=== PATIENT | female | born 1970 | race Caucasian/White ===

== ENCOUNTER 2017-01-26 08:45 | Inpatient (IN) | payer OTHER ==
[~2017-01-26] VITALS: Ht 154.9 cm; Wt 39.6 kg
--- NOTE | 2017-01-26 08:47 | NUR ---
IN BATHROOM PRIOR TO TRIAGE
--- NOTE | 2017-01-26 08:56 | NUR ---
46 Y/O FEMALE C/O N/V/D AND DIFFUSE ABDOMINAL/BACK PAIN SINCE SUNDAY; UNABLE TO TOLERATE ANY PO INTAKE PER PT DESPITE BEING "SO VERY THIRSTY". PT DENIES ANYONE ELSE IN HOME BEING SICK. REPORTS "A LITTLE" DIARRHEA. ATTEMPTED TO GIVE URINE SAMPLE PRIOR TO TRIAGE BUT WAS UNABLE TO. HR 130'S. AFEBRILE.
--- NOTE | 2017-01-26 09:02 | ED GI/GU/ABDOMINAL COMPLAINT ---
History of Present Illness General Chief Complaint: Nausea, Vomiting, Diarrhea Stated Complaint: VOMITING X2 DAYS Source: patient Exam Limitations: no limitations Vital Signs & Intake/Output Vital Signs & Intake/Output Vital Signs Date Time Temp Pulse Resp B/P B/P Pulse O2 O2 Flow FiO2 Mean Ox Delivery Rate 01/26 1226 97.2 110 18 133/89 06/ 1225 97.2 110 18 133/89 96 Room Air 01/26 1154 96.9 106 20 136/78 96 Room Air 01/26 1122 97.0 112 16 140/90 97 Room Air 01/26 1117 97.0 112 18 140/90 01/26 1030 97.5 117 20 148/85 97 Room Air 01/26 0911 96 Room Air 01/26 0853 97.2 132 16 116/91 97 Room Air Allergies Coded Allergies: No Known Allergies (01/26/17) Reconcile Medications No Known Home Medications Triage Note: 46 Y/O FEMALE C/O N/V/D AND DIFFUSE ABDOMINAL/BACK PAIN SINCE SUNDAY; UNABLE TO TOLERATE ANY PO INTAKE PER PT DESPITE BEING "SO VERY THIRSTY". PT DENIES ANYONE ELSE IN HOME BEING SICK. REPORTS "A LITTLE" DIARRHEA. ATTEMPTED TO GIVE URINE SAMPLE PRIOR TO TRIAGE BUT WAS UNABLE TO. HR 130'S. AFEBRILE. Triage Nurses Notes Reviewed? yes HPI: This is a 46-year-old female who presents to the ER for chief complaint of nausea vomiting and abdominal pain since Sunday morning. She states she had been vomiting on and off since Sunday after putting down her dog on Sunday. She denies any bad food exposure. She states yesterday since 4 PM she has been vomiting nonstop. Complains of mid abdominal pain radiating to her back and lower pelvis. Denies any fevers. Denies any significant diarrhea. No previous abdominal surgeries. Denies chance patency. Patient has a significant alcohol drinker. She drinks a pint per day on the weekends. Denies any alcohol during the week. Past History Travel History Traveled to [place] past 21 day No Medical History Any Pertinent Medical History? see below for history Neurological: NONE EENT: NONE Cardiovascular: NONE Respiratory: NONE Gastrointestinal: NONE Hepatic: NONE Renal: NONE Musculoskeletal: NONE Psychiatric: NONE Endocrine: NONE Blood Disorders: NONE Cancer(s): NONE NETWORK SUPPORT ADMINISTRATOR/Reproductive: NONE Psychosocial History What is your primary language Kyrgyz Tobacco Use: Current Daily Use Daily Tobacco Use Amount/Type: => 5 Cigarettes daily Review of Systems Review of Systems Constitutional: Reports: chills. Denies: fever. GI: Reports: abdominal pain, nausea, vomiting. Hematologic/Endocrine: Denies: bruising, bleeding, polyuria, polydipsia. Immunologic/Allergic: Denies: splenectomy. Progress Differential Diagnosis: PUD/GERD, perforated viscous, ALCOHOLIC KETOACIDOSIS, DKA, PANCREATITIS Plan of Care: Orders Procedure Date/time Status Admit to inpatient 01/26 1303 Active Vital Signs 01/26 1303 Active Code Status 01/26 1303 Active XRY-PORTABLE CHEST XRAY 01/26 1235 Active LACTIC ACID 01/26 1212 Complete BASIC METABOLIC PANEL 01/26 1209 Active Add-on Test (ER Only) 01/26 1125 Active CULTURE,URINE 01/26 1055 Active Add-on Test (ER Only) 01/26 1033 Active EKG 01/26 1032 Active ARTERIAL BLOOD GAS (GEN) 01/26 1025 Complete TROPONIN LEVEL 01/26 0926 Complete URINE DRUGS OF ABUSE 01/26 0912 Complete URINALYSIS 01/26 0912 Complete PARTIAL THROMBOPLASTIN TIME 01/26 0912 Complete PROTHROMBIN TIME 01/26 0912 Complete LIPASE 01/26 0912 Complete LACTIC ACID 01/26 0912 Complete ETHANOL 01/26 0912 Complete COMPREHENSIVE METABOLIC PANEL 01/26 0912 Complete CBC WITHOUT DIFFERENTIAL 01/26 0912 Complete AMYLASE 01/26 0912 Complete Current Medications Sig/Abigail Start time Last Medication Dose Stop Time Status Admin Dextrose/Water 1,000 ML ONCE ONE 01/26 1145 AC 01/26 (D5W 1000) 01/27 0104 1135 Laboratory Tests 01/26/17 1220: Lactic Acid 1.2 01/26/17 1220: Sodium Pending, Potassium Pending, Chloride Pending, Carbon Dioxide Pending, Anion Gap Pending, BUN Pending, Creatinine Pending, BUN/Creatinine Ratio Pending , Glucose Pending, Calcium Pending 01/26/17 1100: pH 7.36, pCO2 22 L, pO2 88, HCO3 12 L, ABG O2 Sat (Measured) 97.0, Carboxyhemoglobin 3.9, O2 Concentration % RA, O2 Delivery Method RA, Phlebotomy Draw Site FEMORAL 01/26/17 1055: Urine Opiates Screen 1923.00, Methadone Screen < 40, Barbiturate Screen < 60, Ur Phencyclidine Scrn < 6.00, Amphetamines Screen 185, U Benzodiazepines Scrn < 85, Urine Cocaine Screen < 50, Urine Cannabis Screen 79.40 H, Urinalysis LIGHT H, Urine Color KAPIL, Urine Clarity CLEAR, Urine pH 6.0, Ur Specific Jackson >= 1.030, Urine Protein 100 H, Urine Ketones >=80, Urine Nitrite NEG, Urine Bilirubin POS@ICTO H, Urine Urobilinogen 0.2, Ur Leukocyte Esterase NEG, Ur Microscopic SEDIMENT EXAMINED, Urine RBC 15-25 H, Urine WBC 1-3 H, Ur Epithelial Cells FEW, Urine Bacteria PACKD H, Urine Hemoglobin MOD H, Urine Glucose NEG 01/26/17 0926: Anion Gap 43 H, Estimated GFR 44 L, BUN/Creatinine Ratio 20.8, Glucose 325 H, Lactic Acid 3.7 H, Calcium 8.9, Total Bilirubin 1.5 H, AST 131 H, ALT 185 H, Alkaline Phosphatase 99, Troponin I < 0.01, Total Protein 9.4 H, Albumin 5.9 H , Globulin 3.5, Albumin/Globulin Ratio 1.7, Amylase 147 H, Lipase 588 H, PT 9.7, INR 0.92, APTT 30, CBC w Diff MAN DIFF ORDERED, RBC 4.80, MCV 109.9 H, MCH 36.9 H, RDW 14.3, MPV 9.6, Gran % 89.5 H, Lymphocytes % 3.6 L, Monocytes % 6.9, Eosinophils % 0, Basophils % 0 L, Absolute Granulocytes 17.0 H, Segmented Neutrophils 85 H, Band Neutrophils 2, Absolute Lymphocytes 0.7 L, Lymphocytes 7 L, Monocytes 5, Absolute Monocytes 1.3 H, Eosinophils 1, Absolute Eosinophils 0, Absolute Basophils 0, Platelet Estimate VERIFIED BY SMEAR, Poikilocytosis 1+, Anisocytosis 1+, Macrocytic Cells 1+, PUBS MCHC 33.6, Serum Alcohol < 10.0 Microbiology 01/26 1055 URINE ROUT: Urine Culture - RECD Diagnostic Imaging: Viewed by Me: CT Scan. Discussed w/RAD: CT Scan. Radiology Impression: PATIENT: DEJON CHANCE PRESENT AGE: 46 PATIENT ACCOUNT NO: [id number] : 68 LOCATION: [facility] ORDERING PHYSICIAN: SOFIA ROPER MD SERVICE DATE: 01/26/17 EXAM TYPE: CAT - CT ABD & PELVIS W/O IV CONTRAS EXAMINATION: CT ABDOMEN AND PELVIS WITHOUT CONTRAST CLINICAL INFORMATION: Abdominal pain, vomiting. Evaluate for pancreatitis. COMPARISON: None. TECHNIQUE: Multidetector volumetric imaging was performed from the superior aspect of the liver through the pubic symphysis. Sagittal and coronal reformatted images were obtained on the technologist's workstation. DLP: 236.71 mGy-cm. FINDINGS: LUNG BASES: There is a small focal area of subpleural ground-glass opacity in the right middle lobe which is nonspecific but may be inflammatory. The lung bases are otherwise unremarkable. LIVER, GALLBLADDER, AND BILIARY TREE: There is diffuse low-attenuation of the liver consistent with hepatic steatosis. There are no focal lesions. There is no biliary duct dilatation. The gallbladder is unremarkable with no evidence of radiopaque gallstones, gallbladder wall thickening, or obvious pericholecystic inflammatory changes. PANCREAS: There is fullness in the region of the head of the pancreas. Evaluation is limited due to the lack of intravenous contrast. The body and tail of the pancreas are unremarkable. There are no apparent peripancreatic inflammatory changes around the body and tail. SPLEEN: Unremarkable. ADRENAL GLANDS: Unremarkable. KIDNEYS AND URETERS: The kidneys are normal in size, shape, and attenuation. No hydronephrosis, hydroureter, or calculi seen. No perinephric stranding. BLADDER: Unremarkable. GASTROINTESTINAL TRACT: The small and large bowel are unremarkable. The appendix is unremarkable. ABDOMINAL WALL: No significant hernia is appreciated. LYMPH NODES: Normal. VASCULAR: There is a circumaortic left renal vein. The vascular structures are otherwise unremarkable. PELVIC VISCERA: There is a right ovarian cyst measuring 2.3 cm. The pelvic viscera are otherwise unremarkable. OSSEOUS STRUCTURES: There is severe degenerative disc disease at L2-L3. IMPRESSION: 1. Small focal area of subpleural ground-glass opacity in the right middle lobe which is nonspecific but may be inflammatory. 2. Hepatic steatosis. 3. Fullness in the region of the head of the pancreas. Evaluation is limited due to the lack of intravenous contrast. 4. Right ovarian cyst measuring 2.3 cm. 5. Severe degenerative disc disease at L2-L3. DICTATED BY: RK MORATAYA MD DATE/TIME DICTATED:01/26/171204 BULL RIDER:ALDAIR DATE/TIME TRANSCRIBED:01/26/171204 CONFIDENTIAL, DO NOT COPY WITHOUT APPROPRIATE AUTHORIZATION. <Electronically signed in Other Vendor System> SIGNED BY: RK MORATAYA MD 01/26/17 1222 Initial ED EKG: SINUS TACHYCARDIA @ 112 BPM Rhythm Strip: sinus tachycardia Departure Departure Time of Disposition: 1258 Disposition: STILL A PATIENT Condition: Stable Clinical Impression Primary Impression: DKA (diabetic ketoacidoses) Referrals: YESSY GARSIA MD Departure Forms: Customer Survey General Discharge Information Prescriptions: Current Visit Scripts No Known Home Medications Admission Note Spoke With: KATIE CLEMENTE,DANAE Zeng Documentation of Exam: Documentation of any treatments & extenuating circumstances including Concerns Regarding Discharge (functional status, medication knowledge or non-compliance, living conditions, etc.) that warrant an admission rather than observation: [ICU MONITOR, INSULIN DRIP, FLUID RESUSSCITATION, MONITOR I/O, ENDOCRINOLOGY CONSULTATION, PAIN MANAGEMENT, CIWA MONITORING, CRISIS CONSULT]
--- NOTE | 2017-01-26 09:18 | NUR ---
PT TO ROOM, STATES THAT SHE HAD TO PUT HER DOG DOWN THIS WEEK AND SHE HAS BEEN UPSET SINCE, PT STATES THAT SHE HAS HAD N/V SINCE SUNDAY , ONE EPISODE OF LOOSE STOOL. ABD PAIN THAT STARTED AFTER THE VOMITTING. PT BEGGING THIS NURSE FOR WATER OR ICE CHIPS, PER DR ROPER PT CAN HAVE ICE CHIPS. IV PLACED AND WHEN THIS NURSE ENTERED ROOM WITH MEDS PT ACTIVELY VOMITTING A SMALL AMOUNT CLEAR FLUID. PT AWARE THAT SHE SHOULD NOT EAT ANYMORE ICE CHIPS. PT ADMITS TO BEING A HEAVY DRINKER AND HAS NOT HAD ANYTHING SINCE OVER THE WEEKEND. DENIES HISTORY OF WITHDRAWAL SEIZURES. PT MEDICATED WITH ZOFRAN AND TORADOL
--- NOTE | 2017-01-26 09:27 | NUR ---
BLDS DRAWN AND SENT
[2017-01-26 09:40] LABS: ABSOLUTE BASOPHIL COUNT 0 /CUMM (0.0-0.2); ABSOLUTE EOSINOPHIL COUNT 0 /CUMM (0.0-0.7); ABSOLUTE LYMPH COUNT 0.7 /CUMM (1.2-3.4); ABSOLUTE MONOCYTE COUNT 1.3 /CUMM (0.10-0.60); BASOPHIL % 0 % (0.0-2.0); EOSINOPHIL % 0 % (0-5); GRANULOCYTE % 89.5 % (42.2-75.2); HEMATOCRIT 52.7 % (37-47); MEAN CORPUSCULAR HGB 36.9 PG (27.0-31.0); MEAN CORPUSCULAR HGB CONC 33.6 G/DL (33.0-37.0); MEAN CORPUSCULAR VOLUME 109.9 FL (81.0-99.0); MEAN PLATELET VOLUME 9.6 FL (7.4-10.4); PLATELET COUNT 173 /CUMM (130-400); RBC DISTRIBUTION WIDTH 14.3 % (11.5-14.5)
--- NOTE | 2017-01-26 09:57 | NUR ---
PT VOMITTED X 2 AFTER IV ZOFRAN, COMPLAINS OF CHILLS, REMAINS AFEBRILE . MD PEOPLES
--- NOTE | 2017-01-26 10:03 | NUR ---
PT MEDICATED WITH IV PHENERGAN 12.5 MG IV
[2017-01-26 10:06] LABS: PT 9.7 SEC (9.4-12.5); PTT 30 SEC (25-37)
--- NOTE | 2017-01-26 10:20 | NUR ---
PT COMPLAINS OF 10/10 ABD PAIN, MEDICATED AT THIS TIME WITH 4 MG MORPHINE
--- NOTE | 2017-01-26 10:26 | NUR ---
CRITICAL TEST RESULTS [id number] DEJON CHANCE 46 F TESTS AND RESULTS: LACTIC ACID 3.7 Results received and read back by: JUAN F LOBATO Results received date and time: 01/26/17 1026 The following provider was notified of the results, and read the results back: DR ROPER Notified date and time: 01/26/17 at 1026
--- NOTE | 2017-01-26 10:26 | NUR ---
CRITICAL TEST RESULTS [id number] DEJON CHANCE 46 F TESTS AND RESULTS: CO2 - 7 Results received and read back by: JUAN F LOBATO Results received date and time: 01/26/17 1026 The following provider was notified of the results, and read the results back: DR ROPER Notified date and time: 01/26/17 at 1026
--- NOTE | 2017-01-26 10:30 | NUR ---
SECOND LITER NS BOLUS INFUSING AT THIS TIME. PHARMACY GETTING INSULIN DRIP READY AT THIS TIME
--- NOTE | 2017-01-26 10:51 | NUR ---
PT AMBULATED TO BATHROOM WITH ASSIST, COMPLAINS OF FEELING WEAK, AND HAVING THE CHILLS, ASSISTED BACK TO STRETCHER , SINUS TACH ON MONITOR WITH HR 124. PT CONTINUES TO DENIES DRINKING SINCE SUNDAY , DENIES FEELING TREMORS FROM NOT DRINKING
--- NOTE | 2017-01-26 10:54 | NUR ---
URINE OBTAINED AND SENT TO LAB
--- NOTE | 2017-01-26 11:14 | NUR ---
PT DENIES HISTORY OF DIABETES, DR ROPER AT BEDSIDE AND EXPLAINED THAT SHE FEELS SHE IS IN DKA, SECOND LINE PLACED, PT RECIEVED A TOTAL OF 2L IV NS BOLUS. AT 11 AM D5 NS STARTED AT 75ML/HR PER DR ROPER AND INSULIN DRIP STARTED AT 3 UNITS AND HR FOR FS OF 241. PT REMAINS SINUS TACH ON MONITOR HR 110.
[2017-01-26 11:17] VITALS: BP 140/90
--- NOTE | 2017-01-26 11:21 | NUR ---
BP 140/90, HR 112 PT COMPLAINS OF SLIGHT NAUSEA BUT DENIES FEELING SHAKEY, NO VISIBLE TREMORS NOTED AT THIS TIME. CIWA 3.
--- NOTE | 2017-01-26 11:27 | NUR ---
FINGERSTICK 210 AT THIS TIME, AWARE, PT GOING TO CT SCAN AT THIS TIME, PER DR ROPER STOP INSULIN DRIP INTILL PT RETURNS FROM CT SCAN. DRIP PUT ON HOLD AT THIS TIME.. PT REQUEST THAT IF HER MOTHER COMES IN SHE DOES NOT WANT HER MOTHER INFORMED ABOUT ANYTHING THAT IS GOING ON .
--- NOTE | 2017-01-26 11:36 | NUR ---
3RD LITER NS INFUSING LF # 20 GAUGE
--- NOTE | 2017-01-26 11:51 | NUR ---
PT RETURNED FROM CT SCAN , BP 136/78 HR 106, DENIES TREMORS AND STATES THAT SHE STILL HAS SLIGHT NAUSEA, AND CRAMOING IN HER ABD. PER DR ROPER INSULING DRIP DECREASED TO 2 UNITS /HR AT THIS TIME. FRIEND REMAINS AT BEDSIDE
--- NOTE | 2017-01-26 12:05 | NUR ---
FS 204 AT THIS TIME, PT REMAINS ALERT AND ORIENTED AND REQUEST TO HAVE SOME ICE CHIPS OR WATER, PT AWARE THAT WE HAVE TO ASK MD
--- NOTE | 2017-01-26 12:15 | NUR ---
REPEAT LABS BEING DRAWN AT THIS TIME
--- NOTE | 2017-01-26 12:22 | CT SCAN REPORT ---
EXAMINATION: CT ABDOMEN AND PELVIS WITHOUT CONTRAST CLINICAL INFORMATION: Abdominal pain, vomiting. Evaluate for pancreatitis. COMPARISON: None. TECHNIQUE: Multidetector volumetric imaging was performed from the superior aspect of the liver through the pubic symphysis. Sagittal and coronal reformatted images were obtained on the technologist's workstation. DLP: 236.71 mGy-cm. FINDINGS: LUNG BASES: There is a small focal area of subpleural ground-glass opacity in the right middle lobe which is nonspecific but may be inflammatory. The lung bases are otherwise unremarkable. LIVER, GALLBLADDER, AND BILIARY TREE: There is diffuse low-attenuation of the liver consistent with hepatic steatosis. There are no focal lesions. There is no biliary duct dilatation. The gallbladder is unremarkable with no evidence of radiopaque gallstones, gallbladder wall thickening, or obvious pericholecystic inflammatory changes. PANCREAS: There is fullness in the region of the head of the pancreas. Evaluation is limited due to the lack of intravenous contrast. The body and tail of the pancreas are unremarkable. There are no apparent peripancreatic inflammatory changes around the body and tail. SPLEEN: Unremarkable. ADRENAL GLANDS: Unremarkable. KIDNEYS AND URETERS: The kidneys are normal in size, shape, and attenuation. No hydronephrosis, hydroureter, or calculi seen. No perinephric stranding. BLADDER: Unremarkable. GASTROINTESTINAL TRACT: The small and large bowel are unremarkable. The appendix is unremarkable. ABDOMINAL WALL: No significant hernia is appreciated. LYMPH NODES: Normal. VASCULAR: There is a circumaortic left renal vein. The vascular structures are otherwise unremarkable. PELVIC VISCERA: There is a right ovarian cyst measuring 2.3 cm. The pelvic viscera are otherwise unremarkable. OSSEOUS STRUCTURES: There is severe degenerative disc disease at L2-L3. IMPRESSION: 1. Small focal area of subpleural ground-glass opacity in the right middle lobe which is nonspecific but may be inflammatory. 2. Hepatic steatosis. 3. Fullness in the region of the head of the pancreas. Evaluation is limited due to the lack of intravenous contrast. 4. Right ovarian cyst measuring 2.3 cm. 5. Severe degenerative disc disease at L2-L3.
[2017-01-26 12:26] VITALS: BP 133/89
--- NOTE | 2017-01-26 12:27 | NUR ---
PT RESTING ON STRETCHER WITH EYES CLOSED, PT AWAKE AND ALERT FOR VITALS, CIWA 2 AT THIS TIME DUE TO SLIGHT NAUSEA, PT ABLE TO TOLERATE SMALL AMOUNTS OF ICE CHIPS AT THIS TIME. SINUS TACH ON MONITOR WITH HR 110, BP 133/89. 3RD LITER NS BOLUS CONTINUES TO INFUSE LF # 20, D5 NS AT 75 ML/HR , AND INSULIN DRIP AT 2 UNITS PER HOUR INFUSING # 20 RF. FS [address] JUDSON INSULIN DRIP TO REMAIN AT 2 UNITS HR.
--- NOTE | 2017-01-26 12:38 | NUR ---
DR ROPER AT BEDSIDE TO SPEAK WITH PT AT THIS TIME, PT REQUESTING WATER AND ALSO STATES THAT ABD PAIN IS INCREASING. PT INFORMED BY DR ROPER THAT SHE HAS MILD PANCREATITIS.
--- NOTE | 2017-01-26 12:44 | NUR ---
PT MEDICATED AT THIS TIME WITH DILAUDID 1 MG IV PER ORDER FOR 10/10 ABD PAIN, PER DR ROPER PT CAN HAVE SIPS OF WATER.
--- NOTE | 2017-01-26 12:48 | NUR ---
PT MEDICATED WITH PROTONIX PER ORDER
--- NOTE | 2017-01-26 12:59 | NUR ---
FS [address] ROSASTA INSULIN DRIP TO REMAIN AT 2 UNITS /HR AT THIS TIME
--- NOTE | 2017-01-26 13:16 | RADIOLOGY REPORT ---
EXAMINATION: XR PORTABLE CHEST CLINICAL INFORMATION: Questionable infiltrate on recent CT scan. COMPARISON: Abdominal and pelvis CT 01/26/2017. TECHNIQUE: Portable frontal view of the chest was obtained. FINDINGS: The cardiomediastinal silhouette is unremarkable. The lungs and pleural spaces appear clear without evidence of congestion, consolidation, or significant appearing effusion or atelectasis. There is no evidence of pneumothorax or pulmonary edema. Included osseous structures appear largely unremarkable. IMPRESSION: No evidence of an acute intrathoracic process. Given the 2.5 cm transverse dimension focus of right middle lobe groundglass opacity identified on recent abdominal CT, interval follow-up CT imaging will be necessary. A dedicated chest CT on a nonemergent basis should also be considered to evaluate for other areas of groundglass opacity. Please see discussion below in regards to the updated Fleischner recommendations: The Fleischner Society recommendations are related to the follow-up and management of pulmonary nodules detected incidentally in patient's greater than 35 years old on non-screening CT. Ground Glass Nodule: Average size < 6 mm: No routine follow-up. Average size 6 mm or greater: CT at 6-12 months to confirm persistence. Then CT every 2 years until 5 years. In certain suspicious nodules < 6 mm, consider follow-up at 2 years and 4 years. If solid component(s) or growth develops, consider resection.
--- NOTE | 2017-01-26 13:40 | NUR ---
FLUIDS CHANGED TO KCL 20 MEQ IN D5 1/2 NS AT 100ML/HR PER ORDER, FS AT THIS TIME 158, PER ICU STAFF INSULIN DRIP DECREASED TO 0.5 UNITS PER HR PER ORDER AT THIS TIME.
[2017-01-26 13:43] VITALS: BP 136/78
--- NOTE | 2017-01-26 13:43 | NUR ---
PTS CIWA O AT THIS TIME, DENIES NAUSEA OR PAIN.
--- NOTE | 2017-01-26 13:54 | History & Physical ---
JAZMYNE CLEMENTE,[facility] 01/26/17 1352: General Information and HPI MD Statement: I have seen and personally examined DEJON CHATTERJEE and documented this H&P. The patient is a 46 year old F who presented with a patient stated chief complaint of [intractable vomiting]. Source of Information: patient, family Exam Limitations: no limitations History of Present Illness: Ms. Chatterjee is a 46-year-old female with past medical history significant for alcohol abuse, current smoker, left breast lump status post lumpectomy 2009, ovarian abscess status post surgery who presented to ED with chief complaint of intractable vomiting. Patient reported that over the last 3 days she has been vomiting on and off, yesterday she started to vomit consistently since 4 PM, vomits contain mainly food, denied blood. Also reported chills, mild abdominal pain that improved after Dilaudid, denied diarrhea, burning with urination. Patient denied chest pain, shortness of breath, palpitation. Patient reported alcohol abuse, 1 pint of alcohol daily, last drink was over the weekend. She also admit smoking marijuana and cigarette smoking 1 pack daily. Patient doesn't have current primary care physician, denied having any medical problems or using any medication on regular basis. Allergies/Medications Allergies: Coded Allergies: No Known Allergies (01/26/17) Home Med list No Known Home Medications Past History Travel History Traveled to [place] past 21 day No Medical History Neurological: NONE EENT: NONE Cardiovascular: NONE Respiratory: NONE Gastrointestinal: NONE Hepatic: NONE Renal: NONE Musculoskeletal: NONE Psychiatric: NONE Endocrine: NONE Blood Disorders: NONE Cancer(s): NONE COURT ASSISTANT/Reproductive: NONE Surgical History Surgical History: breast biopsy, left breast lumbectomy , overian abcess Past Family/Social History Psychosocial History Where do you live? Home Who Do You Live With? spouse Services at Home: None Primary Language: Khmer Smoking Status: Current Everyday Smoker ETOH Use: alcoholic Illicit Drug Use: marijuana Functional Ability ADLs Independent: dressing, eating, toileting, bathing. Ambulation: independent IADLs Independent: shopping, housework, finances, food prep, telephone, transportation , medication admin. 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 Denies: fever, malaise. EENTM: Denies: blurred vision. Cardiovascular: Denies: chest pain, palpitations. Respiratory: Reports: cough. Denies: short of breath. GI: Reports: abdominal pain, nausea, vomiting. Genitourinary: Denies: dysuria. Exam & Diagnostic Data Last 24 Hrs of Vital Signs/I&O Vital Signs Date Time Temp Pulse Resp B/P B/P Pulse O2 O2 Flow FiO2 Mean Ox Delivery Rate 01/26 1343 97.1 100 16 136/78 06/ 1342 97.1 100 16 136/78 97 Room Air 06/ 1226 97.2 110 18 133/89 06/02 1225 97.2 110 18 133/89 96 Room Air / 1154 96.9 106 20 136/78 96 Room Air / 1122 97.0 112 16 140/90 97 Room Air / 1117 97.0 112 18 140/90 01/26 1030 97.5 117 20 148/85 97 Room Air / 0911 96 Room Air / 0853 97.2 132 16 116/91 97 Room Air Intake & Output 01/26 1600 02 0800 01/26 0000 Intake Total 3367 Output Total 370 Balance 2997 Intake, IV 3187 Intake, Oral 180 Output, 30 Emesis Output, Urine 340 Patient 43.091 kg Weight Weight Reported by Patient Measurement Method Physical Exam General Appearance Alert, Oriented X3, Cooperative, No Acute Distress Skin No Rashes, No Breakdown, No Significant Lesion Skin Temp/Moisture Exam: Warm/Dry HEENT Atraumatic, PERRLA, EOMI, Mucous Membr. moist/pink Neck Supple, No JVD Cardiovascular Regular Rate, Normal S1, Normal S2, No Murmurs Lungs Clear to Auscultation, Normal Air Movement Abdomen Normal Bowel Sounds, Soft, No Tenderness Neurological Normal Gait, Normal Speech, Strength at 5/5 X4 Ext, Normal Tone, Sensation Intact, Cranial Nerves 3-12 NL, Reflexes 2+ Extremities No Clubbing, No Cyanosis, No Edema, Normal Pulses Assessment/Plan Assessment: Ms. Chatterjee is a 46-year-old female with past medical history significant for alcohol abuse, current smoker, left breast lump status post lumpectomy 2009, ovarian abscess status post surgery who presented to ED with chief complaint of intractable vomiting. On admission Vital signs temperature 97.2, pulse 132, respiratory rate 16, blood pressure 116 /91 saturating 97% on room air Lab H&H 17.7/52.7, WBC 19 with 2 bands, platelets 173, sodium 143, potassium 4.6 , bicarbonate 7, BUN/creatinine 27/1.3, glucose 325, anion gap 43, ABG 7.36/22/ 88/12, AST 131, ALT 185, alkaline phosphatase 99, lipase 588, amylase 147, troponin less than 0.01. Urine tox culture positive for cannabis CT abdomen and pelvis IMPRESSION: 1. Small focal area of subpleural ground-glass opacity in the right middle lobe which is nonspecific but may be inflammatory. 2. Hepatic steatosis. 3. Fullness in the region of the head of the pancreas. Evaluation is limited due to the lack of intravenous contrast. 4. Right ovarian cyst measuring 2.3 cm. 5. Severe degenerative disc disease at L2-L3. Problem list #DKA #Lactic acidosis #Anion gap metabolic acidosis #Alcohol abuse #Transaminitis #Elevated lipase with fullness around head of pancreas #Urine culture positive for cannabis #Acute kidney injury most prerenal Plan -Admit to ICU -IV fluid D5 half-normal 100 mL/h -Recheck labs and replete potassium is less than 4 -Check labs every 4 hours -Continue insulin drip, consider switching to subcutaneous insulin after anion gap is closed and bicarbonate of 18 -Obtain endocrine consultation -Check C-peptide, thyroid function test in a.m., GAD65 in a.m. -Check hemoglobin A1c -Trend lactic acid and keep IV fluid hydration -Repeat lipase in a.m. -Monitor liver function test -Ativan Q1 CIWA -Nicotine patch -Code full -DVT prophylaxis heparin subcutaneous -Diet NPO -Consultation Endocrine As Ranked By This Provider Problem List: 1. DKA (diabetic ketoacidoses) Core Measures/Miscellaneous Acute Coronary Syndrome ACS Diagnosis: No Cerebrovascular Accident CVA/TIA Diagnosis: No Congestive Heart Failure CHF Diagnosis: No Venous Thromboembolism VTE Risk Factors: Age > 40 [facility] prophylaxis d/t: No contraindications No VTE Pharm Prophylaxis d/t: No contraindications VTE Diagnosis: No VTE Type: NONE VTE Confirmed by (Test): NONE Severe Sepsis Severe Sepsis Present: No Septic Shock Septic Shock Present: No Miscellaneous Documentation Attending Case Discussed With: KATIE CLEMENTE,DANAE Zeng Primary Care Physician: UNKNOWN Patient sees these Specialists none Level of Patient Care: Critical Care (CRI) LUIS CLEMENTE,DONNA 01/26/17 1413: Resident Review Statement Resident Statement: examined this patient Other Findings: Ms. Chatterjee is a 46-year-old lady with no known medical problems a presents to the emergency room for an evaluation of the three-day history of nausea and vomiting. Patient states that she has been very stressed lately because she had to put her dog down a couple days ago. Yesterday around 4 PM she started to notice diffuse abdominal pain accompanied by vomiting. She has no medical problems diagnosed in the past. She currently drinks about 1 pint of heavy alcohol every day, smokes marijuana. Does also admit to smoking 1 pack per day. States that she had 5-6 episodes of vomiting, denies any hematemesis or hemoptysis. She subsequently came to the emergency room where she was found to have elevated sugars an anion gap. She has never been diagnosed with diabetes before. Does not see any physicians, has no medical issues. Assessment- 1. Diabetic ketoacidosis 2. Anion gap metabolic acidosis likely secondary to above 3. Nausea and vomiting likely secondary to DKA 4. Abdominal pain secondary to DKA 5. Leukocytosis, likely reactive 6. Macrocytosis, likely alcohol induced 7. History of heavy alcohol use 8. Prerenal azotemia 9. Transaminitis and hyperbilirubinemia, possibly secondary to fatty liver 10. U tox positive for cannabis and opiates Plan- - admit to the ICU - Vitals per protocol - Persistent anion gap, continue IV fluids D5 half-normal saline with potassium supplementation - Continue insulin drip at 0.5 mL per hour - Keep nothing by mouth for now - Check thyroid studies, C-peptide, Kevin antibiotic, T12, folic acid, vitamin D - Labs every 4 hrs - Accu-Cheks - Nicotine patch, smoking cessation counseled - CIWA protocol, when necessary Ativan per CIWA protocol - Pain pathway - DVT prophylaxis with subcutaneous heparin - Full code KATIE CLEMENTE,[facility] 01/26/17 1801: Attending MD Review Statement Attending Statement Attending MD Statement: examined this patient, discuss w/resident/PA/HOTEL DIRECTOR, agreed w/resident/PA/HOTEL DIRECTOR, discussed with family, reviewed EMR data (avail), discussed with nursing, discussed with case mgmt, reviewed images, amended to note Attending Assessment/Plan: seen and examined independently Ms. Chatterjee is a 46-year-old female with past medical history significant for alcohol abuse, current smoker, left breast lump status post lumpectomy 2009, ovarian abscess status post surgery who presented to ED with chief complaint of intractable vomiting. She doesn't have hx of DM. Blood work showed glucose 325, carbon dioxide 7, AG 43, alctic acid 3.7, AST 131 and ALT 185, ETOH < 10. Patient reported alcohol abuse, 1 pint of alcohol daily, last drink was over the weekend. She also admit smoking marijuana and cigarette smoking 1 pack daily. She received IVF and insulin drip. Her glucose level has been improving. Abdominal pain and vomiting resolved. Physical Exam General Appearance: mild distress Neck: thyromegaly Respiratory: lungs clear Cardiovascular: tachycardia Gastrointestinal: soft mild tenderness all over Extremities: no edema SIGNIFICANT DATA CT scan of the abdomen reviewed showed no significant major pathology however it did show that there is some inflammation on the pancreas and a small groundglass opacity in the right middle lobe with hepatic steatosis and fullness in the region a head of pancreas. 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 Cultures are negative so far Other blood work reviewed anion gap initially was 43 now down to 21 and bicarbonate was 7 now 15. Amylase lipase elevated liver enzymes elevated bilirubin 1.5 SAMUEL LT elevated white count 19.90 hemoglobin 17 the next hemoglobin is pending probably hemoconcentration 85% segs INR normal ABG initially 736 was a pH after fluid resuscitation IMPRESSION This is a lady with history of significant alcohol use with ongoing smoking, previous left breast surgery with lumpectomy, previous ovarian abscess versus. Pelvic inflammatory disease with surgery, comes here now with significant intractable vomiting with * Severe metabolic acidosis with significant ketosis. High blood sugar noted. She appears to have a new onset diabetes compounded by alcohol use with ketoacidosis with profound metabolic acidosis. * Probable diabetes type 1 * Significant alcohol use with clinical evidence suggestive of pancreatitis with some abnormality in the head of pancreas which needs evaluation * Ongoing smoking with a groundglass opacity in the chest * Electrolyte abnormality with hypocalcemia. RECOMMENDATION * Continue intravenous fluids please see endocrine note * Insulin drip * She can have ice chips * If she does not vomit any further and if she wants to have some food she can have full liquid diet in the future only if she is not vomiting * Replete electrolytes * By mouth calcium * Watch for alcohol withdrawal and use Librium 50 mg every 8 hours and can increase the dose if she needs it. Can use when necessary Ativan if needed * Banana bag as well * Repeat blood work * Watch out for significant DT * Start proton pump inhibitor * Venodyne boots * Lovenox 40 * Patient is critically ill ICU appropriate total time spent 40 minutes
--- NOTE | 2017-01-26 14:07 | NUR ---
PT HAS BED ASSIGNMENT 102. RN NOTIFIED.
--- NOTE | 2017-01-26 14:11 | NUR ---
FS 152 AT THIS TIME, INSULIN DRIP REMAINS AT 0.5 UNITS /HR PER ORDER, KCL 20 MEQ IN D5 1/2 NS INFUSING AT 100ML/HR.
--- NOTE | 2017-01-26 14:39 | NUR ---
pt medicated per order, nicotine patch placed to l arm
--- NOTE | 2017-01-26 14:43 | NUR ---
FS 147 AT THIS TIME
--- NOTE | 2017-01-26 15:33 | Cons- Endocrinology ---
General Information and HPI Consulting Request Date of Consult: 01/26/17 Requested By: ICU Reason for Consult: management of DKA Source of Information: patient, old records Exam Limitations: no limitations History of Present Illness: Ms. Chatterjee is a 46-year-old female with past medical history significant for alcohol abuse, current smoker, left breast lump status post lumpectomy 2009, ovarian abscess status post surgery who presented to ED with chief complaint of intractable vomiting. She doesn't have hx of DM. Blood work showed glucose 325, carbon dioxide 7, AG 43, alctic acid 3.7, AST 131 and ALT 185, ETOH < 10. Patient reported alcohol abuse, 1 pint of alcohol daily, last drink was over the weekend. She also admit smoking marijuana and cigarette smoking 1 pack daily. She received IVF and insulin drip. Her glucose level has been improving. Abdominal pain and vomiting resolved. Currently she is on D51/2 NS at 75 ml/hour, insulin drip 2 units per hour and FSG was 183 at 1 pm. Allergies/Medications Allergies: Coded Allergies: No Known Allergies (01/26/17) Home Med List: No Known Home Medications Review of Systems Review of Systems Constitutional: Reports: see HPI. Cardiovascular: Denies: chest pain. Respiratory: Denies: short of breath. GI: Reports: abdominal pain, nausea, vomiting. Genitourinary: Denies: dysuria. Hematologic/Endocrine: Reports: polyuria, polydipsia. 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 Home Who Do You Live With? spouse Services at Home: None Primary Language: Romanian Smoking Status: Current Everyday Smoker ETOH Use: alcoholic Illicit Drug Use: marijuana Functional Ability ADLs Independent: dressing, eating, toileting, bathing. Ambulation: independent IADLs Independent: shopping, housework, finances, food prep, telephone, transportation , medication admin. 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 Exam & Diagnostic Data Last 24 Hrs of Vital Signs/I&O Vital Signs Date Time Temp Pulse Resp B/P B/P Pulse O2 O2 Flow FiO2 Mean Ox Delivery Rate 01/26 1440 97.8 104 18 132/79 96 Room Air 06/ 1343 97.1 100 16 136/78 06/02 1342 97.1 100 16 136/78 97 Room Air 06/ 1226 97.2 110 18 133/89 06/02 1225 97.2 110 18 133/89 96 Room Air 06/ 1154 96.9 106 20 136/78 96 Room Air / 1122 97.0 112 16 140/90 97 Room Air 06/ 1117 97.0 112 18 140/90 / 1030 97.5 117 20 148/85 97 Room Air / 0911 96 Room Air 01/26 0853 97.2 132 16 116/91 97 Room Air Intake & Output 01/26 1600 06/02 0800 01/26 0000 Intake Total 3367 Output Total 370 Balance 2997 Intake, IV 3187 Intake, Oral 180 Output, 30 Emesis Output, Urine 340 Patient 87 lb 4 oz Weight Weight Bed scale Measurement Method Physical Exam General Appearance: mild distress Neck: thyromegaly Respiratory: lungs clear Cardiovascular: tachycardia Gastrointestinal: soft Extremities: no edema Labs/Devyn Results: Laboratory Tests 01/26 01/26 01/26 1220 1220 1100 Blood Gas pH (7.35 - 7.45 PH) 7.36 pCO2 (35 - 45 TORR) 22 L pO2 (80 - 100 TORR) 88 HCO3 (21 - 28 MEQ/L) 12 L ABG O2 Sat (Measured) (>96.0 %) 97.0 Carboxyhemoglobin (1.5 - 5.0 %) 3.9 O2 Concentration % RA O2 Delivery Method RA Chemistry Sodium (137 - 145 mmol/L) 141 Potassium (3.5 - 5.1 mmol/L) 3.8 Chloride (98 - 107 mmol/L) 105 Carbon Dioxide (22 - 30 mmol/L) 15 L Anion Gap (5 - 16) 21 H BUN (7 - 17 mg/dL) 24 H Creatinine (0.5 - 1.0 mg/dL) 0.8 Estimated GFR (>60 ml/min) > 60 BUN/Creatinine Ratio (7 - 25 %) 30.0 H Glucose (65 - 99 mg/dL) 192 H Lactic Acid (0.7 - 2.1 mmol/L) 1.2 Calcium (8.4 - 10.2 mg/dL) 6.8 L Miscellaneous Phlebotomy Draw Site FEMORAL 01/26 1055 Toxicology Urine Opiates Screen (>2000 NG/ML) 1923.00 Methadone Screen (>300 NG/ML) < 40 Barbiturate Screen (>200 NG/ML) < 60 Ur Phencyclidine Scrn (>25 NG/ML) < 6.00 Amphetamines Screen (>1000 NG/ML) 185 U Benzodiazepines Scrn (>200 NG/ML) < 85 Urine Cocaine Screen (>300 NG/ML) < 50 Urine Cannabis Screen (>50 NG/ML) 79.40 H Urines Urinalysis LIGHT H Urine Color (YEL,AMB,STR) KAPIL Urine Clarity (CLEAR) CLEAR Urine pH (5.0 - 8.0) 6.0 Ur Specific [place] (1.001 - 1.035) >= 1.030 Urine Protein (NEG,<30 MG/DL) 100 H Urine Ketones (NEG) >=80 Urine Nitrite (NEG) NEG Urine Bilirubin (NEG) POS@ICTO H Urine Urobilinogen (0.1 - 1.0 EU/dl) 0.2 Ur Leukocyte Esterase (NEG) NEG Ur Microscopic SEDIMENT EXAMINED Urine RBC (0 - 5 /HPF) 15-25 H Urine WBC (0 - 2 /HPF) 1-3 H Ur Epithelial Cells (NONE,FEW) FEW Urine Bacteria (NEG/NONE) PACKD H Urine Hemoglobin (NEG) MOD H Urine Glucose (N MG/DL) NEG 01/26 01/26 0926 0912 Chemistry Sodium (137 - 145 mmol/L) 143 Potassium (3.5 - 5.1 mmol/L) 4.6 Chloride (98 - 107 mmol/L) 93 L Carbon Dioxide (22 - 30 mmol/L) 7 *L Anion Gap (5 - 16) 43 H BUN (7 - 17 mg/dL) 27 H Creatinine (0.5 - 1.0 mg/dL) 1.3 H Estimated GFR (>60 ml/min) 44 L BUN/Creatinine Ratio (7 - 25 %) 20.8 Glucose (65 - 99 mg/dL) 325 H Hemoglobin A1c (4.2 - 5.8 %) 4.9 C-Peptide Pending Lactic Acid (0.7 - 2.1 mmol/L) 3.7 H Calcium (8.4 - 10.2 mg/dL) 8.9 Total Bilirubin (0.2 - 1.3 mg/dL) 1.5 H AST (14 - 36 U/L) 131 H ALT (9 - 52 U/L) 185 H Alkaline Phosphatase (<127 U/L) 99 Troponin I (< 0.11 ng/ml) < 0.01 Total Protein (6.3 - 8.2 g/dL) 9.4 H Albumin (3.5 - 5.0 g/dL) 5.9 H Globulin (1.9 - 4.2 gm/dL) 3.5 Albumin/Globulin Ratio (1.1 - 2.2 %) 1.7 Amylase (30 - 110 U/L) 147 H Lipase (23 - 300 U/L) 588 H Coagulation PT (9.4 - 12.5 SEC) 9.7 INR (0.90 - 1.19) 0.92 APTT (25 - 37 SEC) 30 Hematology CBC w Diff MAN DIFF ORDERED WBC (4.8 - 10.8 /CUMM) 19.0 H RBC (4.20 - 5.40 /CUMM) 4.80 Hgb (12.0 - 16.0 G/DL) 17.7 H Hct (37 - 47 %) 52.7 H MCV (81.0 - 99.0 FL) 109.9 H MCH (27.0 - 31.0 PG) 36.9 H RDW (11.5 - 14.5 %) 14.3 Plt Count (130 - 400 /CUMM) 173 MPV (7.4 - 10.4 FL) 9.6 Gran % (42.2 - 75.2 %) 89.5 H Lymphocytes % (20.5 - 51.1 %) 3.6 L Monocytes % (1.7 - 9.3 %) 6.9 Eosinophils % (0 - 5 %) 0 Basophils % (0.0 - 2.0 %) 0 L Absolute Granulocytes (1.4 - 6.5 /CUMM) 17.0 H Segmented Neutrophils (42.2 - 75.2 %) 85 H Band Neutrophils (0.0 - 5.0 %) 2 Absolute Lymphocytes (1.2 - 3.4 /CUMM) 0.7 L Lymphocytes (20.5 - 51.1 %) 7 L Monocytes (1.7 - 9.3 %) 5 Absolute Monocytes (0.10 - 0.60 /CUMM) 1.3 H Eosinophils (0 - 5.0 %) 1 Absolute Eosinophils (0.0 - 0.7 /CUMM) 0 Absolute Basophils (0.0 - 0.2 /CUMM) 0 Platelet Estimate (ADEQUATE) VERIFIED BY SMEAR Poikilocytosis 1+ Anisocytosis 1+ Macrocytic Cells 1+ PUBS MCHC (33.0 - 37.0 G/DL) 33.6 Immunology KELIN Antibody Pending Toxicology Serum Alcohol (<10 MG/DL) < 10.0 Assessment/Plan Assessment/Plan Ms. Chatterjee is a 46-year-old female with past medical history significant for alcohol abuse, current smoker, left breast lump status post lumpectomy 2009, ovarian abscess status post surgery who presented to ED with chief complaint of intractable vomiting. she was newly diagnosed with DM type 1 and was admitted to ICU for DKA management. Clinically she has been feeling improving. Her HbA1c was only 4.9%. DM type 1-- ? due to chronic ETOH abuse vs autoimmune related DM type 1 --- check KELIN 65 antibody and C-peptide in the morning --- check TFT in the morning --- continue the current IVF d51/2 NS with 20 meq of KCL at 75 ml/hour for now; continue insulin drip; monitor FSG every one hour and repeat electrolytes in 4 hours. ---please inform me when her DKA resolves and then I will adjust her insulin order accordingly. ---DM education ---nutrition consult. Hypocalcemia---on admission, calcium 8.9 and albumin 5.9; repeat calcium 6.8. ---repeat albumin, check PTH, Mg and 25 OH vitamin D ---start calcium supplement 500 mg twice a day. Consult Acknowledgment - Thank you for your consult request.
[2017-01-26 16:00] VITALS: BP 134/70
--- NOTE | 2017-01-26 17:57 | Admission Certification ---
Admission Certification Certification Statement - As attending physician, I certify that at the time of - admission, based on clinical presentation, severity of - symptoms, need for further diagnostic testing and - therapeutic interventions, and risk of adverse outcomes - without in-hospital treatment, in my clinical assessment, - this patient requires an acute hospital stay for a minimum - of two nights or longer. I have also considered psychsocial - factors such as support system, advanced age, financial - issues, cognitive issues, and failed out-patient treatments, - past re-admission history, safety of patient, and lack of - compliance as applicable. Specific rationale supporting this admission is: sIG ACIDOSIS
--- NOTE | 2017-01-26 19:49 | NUR ---
PT ADMITTED FROM ER, AWAKE AND ORIENTED. MONITOR NSR. INSULIN DRIP INFUSING AT 0.5 MG AND TO BE D/C/D AT 2940. LEVEMIR HAS BEEN GIVEN. THE PT IS TOLERATING FULL LIQUIDS, HER CIWA IS 0, AND SHE HAS NO COMPLAINTS OF PAIN OR NAUSEA SINCE ARRIVAL TO ICU. HER IS PRESENT AND UPDATES HAVE BEEN GIVEN.
[2017-01-26 20:00] VITALS: BP 143/69
--- NOTE | 2017-01-26 22:37 | NUR ---
avss.pt drowsy but arousable. follow commands. no c'o gen discomfort.+pp.no edema. ivf cont via piv site.insulin gtt off and bs monitoring cont with levemir and sliding scale.lcta and on ra with sats >95%.hob elevated.nilton po well. plan of care reviewed.
[2017-01-27] VITALS (14 sets, daily range): BP systolic 95–143; BP diastolic 62–84
[2017-01-27 05:04] LABS: ABSOLUTE EOSINOPHIL COUNT 0.1 /CUMM (0.0-0.7); ABSOLUTE LYMPH COUNT 2.3 /CUMM (1.2-3.4); MEAN CORPUSCULAR HGB 37.3 PG (27.0-31.0); PLATELET COUNT 99 /CUMM (130-400); RBC DISTRIBUTION WIDTH 14.3 % (11.5-14.5)
[2017-01-27 05:08] LABS: ABSOLUTE BASOPHIL COUNT 0.1 /CUMM (0.0-0.2); ABSOLUTE GRANULOCYTE CT 9.8 /CUMM (1.4-6.5); ABSOLUTE MONOCYTE COUNT 0.3 /CUMM (0.10-0.60); BASOPHIL % 0.5 % (0.0-2.0); EOSINOPHIL % 0.8 % (0-5); GRANULOCYTE % 78.1 % (42.2-75.2); MEAN CORPUSCULAR HGB CONC 34.1 G/DL (33.0-37.0); MEAN CORPUSCULAR VOLUME 109.5 FL (81.0-99.0); MEAN PLATELET VOLUME 9.7 FL (7.4-10.4); RED BLOOD CELL CT 3.77 /CUMM (4.20-5.40); WHITE BLOOD CELL COUNT 12.6 /CUMM (4.8-10.8)
[2017-01-27 05:10] LABS: HEMATOCRIT 41.3 % (37-47)
--- NOTE | 2017-01-27 06:38 | NUR ---
AT 0605, THIS RN RECEIVE CRITICAL GLUCOSE VALUE OF 45 FROM THE AM LABS. PATIENT IS ASYMPTOMATIC. DR. Iván GRECO IS NOTIFIED AND 1 AMP D50 IS ORDERED AND GIVEN IV. 0630- FINGERSTICK RECHECK IS 218 AT THIS TIME. WILL CONT TO MONITOR.
--- NOTE | 2017-01-27 09:25 | PN- Resident CRCU ---
Subjective HPI/CRCU Issues: No overnight events, slept well through the night. Offers no complaints, and a liquid diet well. Objective Vital Signs & I&O Last 8 Hrs of Vitals and I&O: Per EMR Exam General Appearance: well developed/nourished, no apparent distress, alert, awake Respiratory: normal breath sounds, chest non-tender Cardiovascular: regular rate/rhythm Gastrointestinal: normal bowel sounds, soft, non-tender Current Medications: Current Medications Sig/Abigail Start time Last Medication Dose Route Stop Time Status Admin Calcium 600 MG BID 01/26 2200 AC 01/26 PO 211 Calcium Gluconate 500 MG BID 01/26 2200 CAN PO Chlordiazepoxide HCl 0 .STK-MED ONE 01/26 1438 DC PO Chlordiazepoxide HCl 50 MG Q8 01/26 1419 AC 01/27 PO 0618 Cyanocobalamin/ 1 BAG ONCE ONE 01/26 1915 DC 01/26 Thiamine/Pyridoxine IV 01/27 0314 2120 Sodium Chloride 1,000 ML Dextrose 25 GM ONCE ONE 01/27 0615 DC 01/27 IV 01/27 0616 0618 Dextrose/Water 1,000 ML ONCE ONE 01/26 1145 DC 01/26 IV 01/27 0104 1135 Folic Acid 0 .STK-MED ONE 01/26 1439 DC PO Folic Acid 1 MG DAILY 01/26 1418 AC 01/26 PO 1438 Heparin Sodium 0 .STK-MED ONE 01/26 1438 DC (Porcine) .ROUTE Heparin Sodium 5,000 UNIT Q8 01/26 1419 AC 01/27 (Porcine) SC 0618 Hydromorphone HCl 0 .STK-MED ONE 01/26 1246 DC .ROUTE Hydromorphone HCl 1 MG ONCE ONE 01/26 1245 DC / IV 01/26 1246 1245 Insulin Aspart 0 TIDAC 01/27 0800 AC SC Insulin Aspart 0 AT BEDTIME 01/26 2200 AC SC Insulin Detemir 3 UNITS BID 01/26 1900 AC 01/26 SC 2120 Insulin Human Regular 100 UNIT ONCE ONE 01/26 1045 DC 01/26 Sodium Chloride 100 ML IV 01/26 1046 1102 Lorazepam 0 Q1P PRN 01/26 1430 AC IV Magnesium Oxide 400 MG ONE ONE 01/26 1915 DC 01/26 PO 01/27 1916 2114 Magnesium Sulfate 1 GM ONCE ONE 01/27 0630 AC 01/27 Dextrose/Water 100 ML IV 01/27 1029 0651 Morphine Sulfate 0 .STK-MED ONE 01/26 1022 DC .ROUTE Morphine Sulfate 4 MG ONCE ONE 01/26 1015 DC / IV 01/26 1016 1020 Multivitamins 0 .STK-MED ONE 01/26 1439 DC PO Multivitamins 1 TAB DAILY 01/26 1418 AC 06 PO 1438 Nicotine 0 .STK-MED ONE 01/26 1439 DC TOP Nicotine 14 MG Q24 01/26 1419 DC 06 TOP 1438 Omeprazole 40 MG DAILY AC 01/27 0700 AC 06 PO 0618 Ondansetron HCl 4 MG Q6P PRN 01/26 1430 AC IV Pantoprazole Sodium 0 .STK-MED ONE 01/26 1252 DC IV Pantoprazole Sodium 40 MG ONCE ONE 01/26 1245 DC 01/26 IV 01/26 1246 1248 Phosphate 250 MG PC AND AT BEDTIME 01/27 0900 AC PO Potassium Chloride 10 MEQ Q1H 01/27 0715 DC 01/27 IV 01/27 0816 0835 Potassium Chloride 20 MEQ Q1 01/27 0700 DC 06 PO 01/27 0801 0843 Potassium Chloride 20 MEQ Q1H 01/27 0615 DC IV 01/27 0716 Potassium Chloride 20 MEQ Q10H 01/26 1315 AC 01/26 Dextrose/Sodium 1,000 ML IV 1330 Chloride Promethazine HCl 0 .STK-MED ONE 01/26 1006 DC .ROUTE Promethazine HCl 12.5 MG ONCE ONE 01/26 1000 DC 01/26 IV 01/26 1001 1003 Sodium Chloride 1,000 ML BOLUS ONE 01/26 1130 DC 06/ IV / 1229 1135 Sodium Chloride 1,000 ML BOLUS ONE 01/26 1030 DC 06/ IV 01/26 1129 1041 Sodium Chloride 1,000 ML BOLUS ONE 01/26 0915 DC / IV / 1014 0913 Thiamine HCl 0 .STK-MED ONE 01/26 1438 DC PO Thiamine HCl 100 MG DAILY 01/26 1418 AC 06 PO 1438 Impression/Plan Impression/Problem List Impression: Assessment- 1. Diabetic ketoacidosis, resolved 2. Anion gap metabolic acidosis likely secondary to above, resolved 3. Nausea and vomiting likely secondary to DKA, resolved 4. Abdominal pain secondary to DKA, resolved 5. Leukocytosis, likely reactive, resolving 6. Macrocytosis, likely alcohol induced 7. History of heavy alcohol use 8. Prerenal azotemia 9. Transaminitis and hyperbilirubinemia, possibly secondary to fatty liver 10. U tox positive for cannabis and opiates Plan- Her DKA has resolved, she has been switched to subcutaneous insulin short-acting and long-acting This morning had an episode of hypoglycemia that resolved with an amp of D50 Can resume consistent carb diet Continue insulin as recommended by endocrine Pain pathway Replete electrolytes Continue Librium taper Subcutaneous heparin for DVT prophylaxis Can be transferred to the regular medicine floor Problem List: 1. DKA (diabetic ketoacidoses) Pain Ratin Tomorrow's Labs & Rationales: per emr Plan DVT/Prophylaxis: pharmacological
--- NOTE | 2017-01-27 09:59 | PN- CRCU ---
Subjective HPI/Critical Care Issues: No overnight events, slept well through the night. Offers no complaints, and a liquid diet well. Objective Vital Signs & I&O Last 8 Hrs of Vitals and I&O: Per EMR Objective Current Medications: Current Medications Sig/Abigail Start time Last Medication Dose Route Stop Time Status Admin Calcium 600 MG BID 01/26 2200 AC 01/27 PO 0928 Calcium Gluconate 500 MG BID 01/26 2200 CAN PO Chlordiazepoxide HCl 0 .STK-MED ONE 01/26 1438 DC PO Chlordiazepoxide HCl 50 MG Q8 01/26 1419 AC 01/27 PO 0618 Cyanocobalamin/ 1 BAG ONCE ONE 01/26 1915 DC 01/26 Thiamine/Pyridoxine IV 01/27 0314 2120 Sodium Chloride 1,000 ML Dextrose 25 GM ONCE ONE 01/27 0615 DC 01/27 IV 01/27 0616 0618 Dextrose/Water 1,000 ML ONCE ONE 01/26 1145 DC 01/26 IV 01/27 0104 1135 Folic Acid 0 .STK-MED ONE 01/26 1439 DC PO Folic Acid 1 MG DAILY 01/26 1418 AC 01/27 PO 0928 Heparin Sodium 0 .STK-MED ONE 01/26 1438 DC (Porcine) .ROUTE Heparin Sodium 5,000 UNIT Q8 01/26 1419 AC 01/27 (Porcine) SC 0618 Hydromorphone HCl 0 .STK-MED ONE 01/26 1246 DC .ROUTE Hydromorphone HCl 1 MG ONCE ONE 01/26 1245 DC 01/26 IV 01/26 1246 1245 Insulin Aspart 0 TIDAC 01/27 0800 AC SC Insulin Aspart 0 AT BEDTIME 01/26 2200 AC SC Insulin Detemir 3 UNITS BID 01/26 1900 AC 01/27 SC 0930 Insulin Human Regular 100 UNIT ONCE ONE 01/26 1045 DC 01/26 Sodium Chloride 100 ML IV 01/26 1046 1102 Lorazepam 0 Q1P PRN 01/26 1430 AC IV Magnesium Oxide 400 MG ONE ONE 01/26 1915 DC / PO 01/26 1916 2114 Magnesium Sulfate 1 GM ONCE ONE 01/27 0630 AC 01/27 Dextrose/Water 100 ML IV 01/27 1029 0651 Morphine Sulfate 0 .STK-MED ONE 01/26 1022 DC .ROUTE Morphine Sulfate 4 MG ONCE ONE 01/26 1015 DC 06/02 IV 01/26 1016 1020 Multivitamins 0 .STK-MED ONE 01/26 1439 DC PO Multivitamins 1 TAB DAILY 01/26 1418 AC 01/27 PO 0928 Nicotine 0 .STK-MED ONE 01/26 1439 DC TOP Nicotine 14 MG Q24 01/26 1419 DC 06/ TOP 1438 Omeprazole 40 MG DAILY AC 01/27 0700 AC 01/27 PO 0618 Ondansetron HCl 4 MG Q6P PRN 01/26 1430 AC IV Pantoprazole Sodium 0 .STK-MED ONE 01/26 1252 DC IV Pantoprazole Sodium 40 MG ONCE ONE 01/26 1245 DC 01/26 IV 01/26 1246 1248 Phosphate 250 MG PC AND AT BEDTIME 01/27 0900 AC 01/27 PO 0929 Potassium Chloride 10 MEQ Q1H 01/27 0715 DC 01/27 IV 01/27 0816 0835 Potassium Chloride 20 MEQ Q1 01/27 0700 DC 01/27 PO 01/27 0801 0927 Potassium Chloride 20 MEQ Q1H 01/27 0615 DC IV 01/27 0716 Potassium Chloride 20 MEQ Q10H 01/26 1315 AC 01/27 Dextrose/Sodium 1,000 ML IV 0924 Chloride Promethazine HCl 0 .STK-MED ONE 01/26 1006 DC .ROUTE Promethazine HCl 12.5 MG ONCE ONE 01/26 1000 DC 06/02 IV / 1001 1003 Sodium Chloride 1,000 ML BOLUS ONE 01/26 1130 DC 06/ IV 01/26 1229 1135 Sodium Chloride 1,000 ML BOLUS ONE 01/26 1030 DC 06/ IV 01/26 1129 1041 Sodium Chloride 1,000 ML BOLUS ONE 01/26 0915 DC 06/ IV / 1014 0913 Thiamine HCl 0 .STK-MED ONE 01/26 1438 DC PO Thiamine HCl 100 MG DAILY 01/26 1418 AC 01/27 PO 0928 Vital Signs & I&O Last 24 Hrs of Vitals and I&O: d Vital Signs Date Time Temp Pulse Resp B/P B/P Pulse O2 O2 Flow FiO2 Mean Ox Delivery Rate 01/28 800 97.9 96 29 120/70 01/27 0800 96 Room Air Room Air 01/27 0600 97.9 82 24 143/77 06/03 0400 97.9 84 21 120/84 06/03 0200 98.4 94 13 111/62 06/03 0000 98.4 98 16 112/62 06/02 2000 98.6 98 20 143/69 06/02 1600 98.0 100 20 134/70 98 Room Air 06/02 1440 97.8 104 18 132/79 96 Room Air 06/02 1343 97.1 100 16 136/78 06/02 1342 97.1 100 16 136/78 97 Room Air 06/02 1226 97.2 110 18 133/89 06/02 1225 97.2 110 18 133/89 96 Room Air 06/02 1154 96.9 106 20 136/78 96 Room Air 06/02 1122 97.0 112 16 140/90 97 Room Air 06/02 1117 97.0 112 18 140/90 06/02 1030 97.5 117 20 148/85 97 Room Air Intake & Output /03 1600 06/03 0800 06/03 0000 Intake Total 970 1016 Output Total 500 300 Balance 470 716 Intake, IV 850 776 Intake, Oral 120 240 Output, Urine 500 300 Patient 87 lb 4 oz Weight SIGNIFICANT DATA Blood work reviewed potassium is 3.1 anion gap is now normal to 12 amylase lipase is elevated phosphorous is still significantly low Urine tox screen reviewed positive for cannot this White count 12.6 improved Platelet has dropped to 99 MCV 109 B12 and folic acid level I normal A1c 4.9 Medications reviewed Impression/Plan Impression/Plan Impression/Plan: Physical Exam General Appearance: mild distress Neck: thyromegaly Respiratory: lungs clear Cardiovascular: tachycardia Gastrointestinal: soft mild tenderness all over Extremities: no edema SIGNIFICANT DATA CT scan of the abdomen reviewed showed no significant major pathology however it did show that there is some inflammation on the pancreas IV doesn't work right away and a small groundglass opacity in the right middle lobe with hepatic steatosis and fullness in the region a head of pancreas. 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 Cultures are negative so far IMPRESSION This is a lady with history of significant alcohol use with ongoing smoking, previous left breast surgery with lumpectomy, previous ovarian abscess versus. Pelvic inflammatory disease with surgery, comes here now with significant intractable vomiting with * Resolving Severe metabolic acidosis with significant ketosis. High blood sugar noted initially. She appears to have a new onset diabetes compounded by alcohol use with ketoacidosis with profound metabolic acidosis which is improving * Probable diabetes type 1 * Significant alcohol use with clinical evidence suggestive of pancreatitis with some abnormality in the head of pancreas which needs evaluation * Ongoing smoking with a groundglass opacity in the chest needs follow up ct scan as she is an active smoker * Electrolyte abnormality with hypocalcemia improving RECOMMENDATION * Cont to progress her diet today if nilton, reduce ivf today * Insulin Per endo, follow sugars * Replete electrolytes, with po neutraphos and po potassium (needs about 100 meq po today * By mouth calcium * Cont librium and if any signs of worsening dt increase librium to 75 or 100 q 8 hrs * Watch out for significant DTs * PPI po * Lovenox 40 * Pt is critically ill still tts 36 mins
--- NOTE | 2017-01-27 12:22 | PN- Diabetes ---
Assessment/Plan Assessment: Ms. Chatterjee is a 46-year-old female with past medical history significant for alcohol abuse, current smoker, left breast lump status post lumpectomy 2009, ovarian abscess status post surgery who presented to ED with chief complaint of intractable vomiting. she was newly diagnosed with DM and was admitted to ICU for DKA management. Her HbA1c was only 4.9%. KELIN 65 antibody and c-peptide are still pending. Clinically she has been feeling improving; DKA resolved. Currently she is on D5 1/2 NS with 20 meq of KCL at 50 ml/hour. She was started on Levemir 3 units twice a day and Novolog coverage before meals and Novolog coverage at bedtime. Her FSGs were 100, 148, 218 and 145. Am lab showed glucose level of 45. Am cortisol was 17.4. Plan: 1. continue the current IVF; 2. decrease Levemir to 3 units daily; 3. continue the current Novolog coverage before meals; 4. replete K; monitor electrolytes; 5. monitor FSGs; 6. continue calcium supplement; recommend vitamin D 1000 units daily. will follow Subjective Subjective: She feels improving. Objective Last 24 Hrs of Vital Signs/I&O Vital Signs Date Time Temp Pulse Resp B/P B/P Pulse O2 O2 Flow FiO2 Mean Ox Delivery Rate 06/03 0800 97.9 96 29 120/70 06/03 0800 96 Room Air Room Air 06/03 0600 97.9 82 24 143/77 06/03 0400 97.9 84 21 120/84 06/03 0200 98.4 94 13 111/62 06/03 0000 98.4 98 16 112/62 06/02 2000 98.6 98 20 143/69 06/02 1600 98.0 100 20 134/70 98 Room Air 06/02 1440 97.8 104 18 132/79 96 Room Air 06/02 1343 97.1 100 16 136/78 06/02 1342 97.1 100 16 136/78 97 Room Air 06/02 1226 97.2 110 18 133/89 06/02 1225 97.2 110 18 133/89 96 Room Air Intake & Output 06/03 1600 06/03 0800 06/03 0000 Intake Total 970 1016 Output Total 500 300 Balance 470 716 Intake, IV 850 776 Intake, Oral 120 240 Output, Urine 500 300 Patient 87 lb 4 oz 87 lb 4 oz Weight Findings Pertinent Lab/Devyn Results: Laboratory Tests 01/27 01/26 01/26 0350 2130 1635 Chemistry Sodium (137 - 145 mmol/L) 139 133 L Potassium (3.5 - 5.1 mmol/L) 3.1 L 3.7 Chloride (98 - 107 mmol/L) 105 102 Carbon Dioxide (22 - 30 mmol/L) 22 19 L Anion Gap (5 - 16) 12 13 BUN (7 - 17 mg/dL) 14 19 H Creatinine (0.5 - 1.0 mg/dL) 0.5 0.6 Estimated GFR (>60 ml/min) > 60 > 60 Glucose (65 - 99 mg/dL) 45 *L 146 H Calcium (8.4 - 10.2 mg/dL) 8.0 L 7.3 L Phosphorus (2.5 - 4.5 mg/dL) 1.1 L 1.2 L Magnesium (1.6 - 2.3 mg/dL) 1.6 1.4 L Total Bilirubin (0.2 - 1.3 mg/dL) 0.9 1.0 AST (14 - 36 U/L) 71 H 73 H ALT (9 - 52 U/L) 109 H 126 H Albumin (3.5 - 5.0 g/dL) 3.7 4.0 Lipase (23 - 300 U/L) 949 H TSH (0.270 - 4.200 uIU/mL) 2.270 Free T4 (0.64 - 1.79 ng/dL) 0.91 PTH Intact Cancelled Cortisol AM Sample (4.46 - 22.7 ug/dL) 17.4 Hematology CBC w Diff NO MAN DIFF REQ WBC (4.8 - 10.8 /CUMM) 12.6 H RBC (4.20 - 5.40 /CUMM) 3.77 L Hgb (12.0 - 16.0 G/DL) 14.1 Hct (37 - 47 %) 41.3 MCV (81.0 - 99.0 FL) 109.5 H MCH (27.0 - 31.0 PG) 37.3 H RDW (11.5 - 14.5 %) 14.3 Plt Count (130 - 400 /CUMM) 99 L MPV (7.4 - 10.4 FL) 9.7 Gran % (42.2 - 75.2 %) 78.1 H Lymphocytes % (20.5 - 51.1 %) 18.0 L Monocytes % (1.7 - 9.3 %) 2.6 Eosinophils % (0 - 5 %) 0.8 Basophils % (0.0 - 2.0 %) 0.5 Absolute Granulocytes (1.4 - 6.5 /CUMM) 9.8 H Absolute Lymphocytes (1.2 - 3.4 /CUMM) 2.3 Absolute Monocytes (0.10 - 0.60 /CUMM) 0.3 Absolute Eosinophils (0.0 - 0.7 /CUMM) 0.1 Absolute Basophils (0.0 - 0.2 /CUMM) 0.1 PUBS MCHC (33.0 - 37.0 G/DL) 34.1 01/26 01/26 01/26 1635 1635 1220 Chemistry Sodium (137 - 145 mmol/L) 137 Potassium (3.5 - 5.1 mmol/L) 3.6 Chloride (98 - 107 mmol/L) 102 Carbon Dioxide (22 - 30 mmol/L) 19 L Anion Gap (5 - 16) 15 BUN (7 - 17 mg/dL) 21 H Creatinine (0.5 - 1.0 mg/dL) 0.7 Estimated GFR (>60 ml/min) > 60 Glucose (65 - 99 mg/dL) 114 H Lactic Acid (0.7 - 2.1 mmol/L) 1.2 Calcium (8.4 - 10.2 mg/dL) 7.0 L Phosphorus (2.5 - 4.5 mg/dL) 1.7 L Magnesium (1.6 - 2.3 mg/dL) 1.4 L Total Bilirubin (0.2 - 1.3 mg/dL) 1.1 Direct Bilirubin (< 0.4 mg/dL) 0.4 AST (14 - 36 U/L) 76 H ALT (9 - 52 U/L) 129 H Albumin (3.5 - 5.0 g/dL) Cancelled 4.1 Vitamin B12 (239 - 931 pg/mL) 859 25-OH Vitamin D Total (30 - 100 ng/ml) 23.4 L Folate (2.76 - 20.0 ng/mL) 16.7 Toxicology Acetone Level (NEGATIVE) POSITIVE AT 1:8 DIL 01/26 1220 Chemistry Sodium (137 - 145 mmol/L) 141 Potassium (3.5 - 5.1 mmol/L) 3.8 Chloride (98 - 107 mmol/L) 105 Carbon Dioxide (22 - 30 mmol/L) 15 L Anion Gap (5 - 16) 21 H BUN (7 - 17 mg/dL) 24 H Creatinine (0.5 - 1.0 mg/dL) 0.8 Estimated GFR (>60 ml/min) > 60 BUN/Creatinine Ratio (7 - 25 %) 30.0 H Glucose (65 - 99 mg/dL) 192 H Calcium (8.4 - 10.2 mg/dL) 6.8 L
--- NOTE | 2017-01-27 15:58 | NUR ---
SHIFT NOTE: A&O X 3. CALM & COOPERATIVE. O2 SAT STABLE ON RA. LUNGS DIMINISHED. PT C/O NON-PRODUCTIVE COUGH. DR ROJAS MADE AWARE & CAME TO BEDSIDE FOR EVAL. NO S/S GI DISTRESS. SKIN INTACT NO EDEMA NOTED. PAIN 0/10 THIS SHIFT. ASSIST X 1 TO BR TO VOID IN HAT IN TOILET. UNSTEADY GAIT. IVF PER EMAR. VSS. POTASSIUM LEVEL LOW IN AM LABS. REPLEATED & 1400 LABS SENT. ANTICOAGULANTS HELD PER DR SMITH DUE TO PLATELET LEVEL. ALPS IN PLACE ENTIRE SHIFT EXCEPT DURING AMBULATION TO BR. BLOOD GLUCOSE LEVELS <150 THIS SHIFT. NO COVERAGE NEEDED. WILL CONTINUE TO MONITOR.
--- NOTE | 2017-01-27 17:59 | NUR ---
17:00 PM CRITICAL VALUE POTASSIUM 6.[address] SMITH. PT ASYMPTOMATIC/DENIES CP. ST 100S ON THE MONITOR AT THIS TIME. EKG DONE. DEXTROSE, NOVOLIN R, & KAYEXALATE GIVEN PER EMAR. REPEAT LABS ORDERED FOR 22:00 PM.
[2017-01-28] VITALS (9 sets, daily range): BP systolic 110–151; BP diastolic 62–99
[2017-01-28 05:04] LABS: ABSOLUTE BASOPHIL COUNT 0 /CUMM (0.0-0.2); ABSOLUTE EOSINOPHIL COUNT 0.1 /CUMM (0.0-0.7); ABSOLUTE GRANULOCYTE CT 5.9 /CUMM (1.4-6.5); ABSOLUTE LYMPH COUNT 2.5 /CUMM (1.2-3.4); ABSOLUTE MONOCYTE COUNT 0.3 /CUMM (0.10-0.60); BASOPHIL % 0.3 % (0.0-2.0); EOSINOPHIL % 1.6 % (0-5); GRANULOCYTE % 66.7 % (42.2-75.2); HEMATOCRIT 41.4 % (37-47); MEAN CORPUSCULAR HGB 37.3 PG (27.0-31.0); MEAN CORPUSCULAR HGB CONC 34.4 G/DL (33.0-37.0); MEAN CORPUSCULAR VOLUME 108.6 FL (81.0-99.0); MEAN PLATELET VOLUME 9.7 FL (7.4-10.4); PLATELET COUNT 76 /CUMM (130-400); RBC DISTRIBUTION WIDTH 14.1 % (11.5-14.5); RED BLOOD CELL CT 3.81 /CUMM (4.20-5.40); WHITE BLOOD CELL COUNT 8.8 /CUMM (4.8-10.8)
--- NOTE | 2017-01-28 07:25 | NUR ---
PATIENT IS A/O X 3, OPEN EYES SPONT. , PERRLA, MOVES ALL LIMBS, OBEYS COMMAND, DENIES ANYU PAIN. VITAL SIGNS ARE STABLE OVER NIGHT, ON SINUS RHYTHM, BREATHING SPONTANEOUSLY ON RA, GOOD O2 SAT, NOT IN DISTRESS. ABD IS SOFT GOOD BOWEL SOUNDS, LAST BM LAST NIGHT WITH LOOSE YELLOWISH STOOL, ON CARB 3 DIET WITH FAIR APPETITE LAST NIGHT. VOIDS ON HER OWN USING COMMODE. SKIN IS INTACT. MORNING LAB RESULT IS IN AND NOTED BY DOCTOR TEJINDER, KCL REPLACEMENT DONE, SEE eMAR.
--- NOTE | 2017-01-28 08:09 | PN- Resident CRCU ---
Subjective HPI/CRCU Issues: Ms. Chatterjee seen and examined at bedside this AM. She endorses weakness and lethargy along with mild cough productive of clear/white sputum. Otherwise, she denies fever, chills or nausea/abdominal pain with eating. 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 Vital signs last 24 hours: T 97.6-99.3, HR 82-104, RR 12-30, BP 92-140/67-80, O2 sat 88-98% on RA. Total intake last 24 hours: 4215 cc Total output last 24 hours: 3000 cc Objective Vital Signs & I&O Last 8 Hrs of Vitals and I&O: T 97.6-99.3, HR 82-104, RR 12-30, BP 92-140/67-80, O2 sat 88-98% on RA. Exam General Appearance: well developed/nourished, no apparent distress, alert, awake , comfortable Head: atraumatic, normal appearance Ears, Nose, Throat: normal pharynx, hearing grossly normal Neck: normal inspection, supple Respiratory: Rhonchi appreciated most prominently right lung, normal air movement, no respiratory distress Cardiovascular: regular rate/rhythm Gastrointestinal: normal bowel sounds, soft, non-tender Extremities: normal inspection, no edema Cranial Nerves: normal hearing, normal speech, PERRL Skin: intact, warm/dry Nutrition Nutrition: P.O. diet Current Medications: Current Medications Sig/Abigail Start time Last Medication Dose Route Stop Time Status Admin Albuterol Sulfate 3 ML ONCE ONE 01/28 1045 DC INH 01/28 1046 Calcium 600 MG DAILY 01/29 1000 AC PO Calcium 600 MG BID 01/26 2200 DC 01/28 PO 0801 Chlordiazepoxide HCl 50 MG Q8 01/26 1419 AC 01/28 PO 0603 Cholecalciferol 1,000 IU DAILY 01/27 1141 AC 01/28 PO 0800 Dextrose 25 GM ONCE ONE 01/27 1700 DC 01/27 IV 01/27 1701 1702 Enoxaparin Sodium 40 MG DAILY 01/28 1023 AC SC Fluticasone 2 SPRAY DAILY 01/27 1408 AC 01/28 Propionate IDALIA 0759 Folic Acid 1 MG DAILY 01/26 1418 AC 01/28 PO 0759 Guaifenesin 10 ML Q6P PRN 01/27 1415 01/27 PO 1718 Insulin Aspart 0 TIDAC 01/27 0800 AC SC Insulin Aspart 0 AT BEDTIME 01/26 2200 AC SC Insulin Detemir 3 UNITS DAILY 01/28 1000 AC 01/28 SC 0835 Insulin Detemir 3 UNITS BID 01/26 1900 DC 01/27 SC 0930 Insulin Human Regular 10 UNITS ONCE ONE 01/27 1700 DC 01/27 IV 01/27 1701 1702 Ipratropium Constable 2.5 ML ONCE ONE 01/28 1045 DC INH 01/28 1046 Lorazepam 0 Q1P PRN 01/26 1430 AC 01/27 IV 2150 Magnesium Oxide 400 MG ONE ONE 01/28 0830 DC 01/28 PO 04 0831 0836 Multivitamins 1 TAB DAILY 01/26 1418 AC 01/28 PO 0800 Nicotine 7 MG DAILY 01/28 1048 AC TOP Omeprazole 40 MG DAILY AC 01/27 0700 AC 01/28 PO 0603 Ondansetron HCl 4 MG Q6P PRN 01/26 1430 AC IV Phosphate 250 MG PC AND AT BEDTIME 01/27 0900 AC 01/28 PO 0801 Potassium Chloride 40 MEQ BID 01/28 1000 AC 01/28 PO 0834 Potassium Chloride 10 MEQ Q1H 01/28 0545 DC 01/28 IV 01/28 0646 0656 Potassium Chloride 20 MEQ Q10H 01/26 1315 DC 01/27 Dextrose/Sodium 1,000 ML IV 0924 Chloride Sodium Phosphate 15 mMol ONE ONE 01/27 1700 DC 01/27 Sodium Chloride 250 ML IV 01/27 2103 1843 Sodium Polystyrene 120 ML ONCE ONE 01/27 1700 DC 01/27 Sulfonate PO 01/27 1701 1705 Thiamine HCl 100 MG DAILY 01/26 1418 AC 01/28 PO 0800 CXR Findings: IMPRESSION: No evidence of an acute intrathoracic process. Given the 2.5 cm transverse dimension focus of right middle lobe groundglass opacity identified on recent abdominal CT, interval follow-up CT imaging will be necessary. A dedicated chest CT on a nonemergent basis should also be considered to evaluate for other areas of groundglass opacity. Impression/Plan Impression/Problem List Impression: Ms. Chatterjee is a 46 year old female with PMH alcohol abuse, tobacco abuse, left breast lump status post lumpectomy 2009 and ovarian abscess status post surgery who presented to [facility] with chief complaint of intractable nausea and vomiting, found to have new-onset diabetes. Patient is currently admitted to the ICU and the following is the management: 1. New onset diabetes mellitus * HgA1C noted to be elevated to * Endocrinology consult with Dr. Luis Fernando MD appreciated * Patient not on SC insulin, continue 2 U SC levemir BID, NSS TIDAC/HS * Diet advanced to CC3, tolerating well * PO PPI * Follow up KELIN 65 antibody and C-peptide level * Continue monitoring electrolytes and replete as needed * Patient stable for transfer to general medicine 2. Severe metabolic acidosis with ketosis * Due to a combination of diabetes and significant alcohol use * Monitor for DTs, aggressively address new onset diabetes as above * Anion gap now closed at 10, bicarb normalized 3. Significant alcohol use * Patient counseled on ETOH abuse, importance of quitting emphasized * Continue folic acid, multivitamin, vitamin D, thiamine daily * Continue CIWA scoring, IV ativan Q1P for CIWA 8-11 or HR 100-110 * Librium 50 mg PO Q8, additional dose of 50 mg PO librium NOW * Watch out for DTs 4. Tobacco abuse with groundglass opacity in the lung * Tobacco cessation counseling * Nicotine patch 14 mg top Q24 * TRC nebs, robitussin as needed for cough * Repeat CXR in AM, close follow up with pulm after discharge for nodule follow up 5. Hypocalcemia * Continue calcium carbonate 600 mg PO daily FULL CODE DVTP: SC lovenox Consistent carb 3 diet Mild pain pathway Problem List: 1. DKA (diabetic ketoacidoses) Pain Ratin Tomorrow's Labs & Rationales: CBC (leukocytosis) BEP (hypokalemia) Plan DVT/Prophylaxis: pharmacological
--- NOTE | 2017-01-28 09:25 | PN- CRCU ---
Subjective HPI/Critical Care Issues: DOing ok stable still Fatigued Afebrile Labs data reviewed QTC 483 Potassium 2.8 Objective Current Medications: Current Medications Sig/Abigail Start time Last Medication Dose Route Stop Time Status Admin Calcium 600 MG BID 01/26 2200 AC 01/28 PO 0801 Chlordiazepoxide HCl 50 MG Q8 01/26 1419 AC 01/28 PO 0603 Cholecalciferol 1,000 IU DAILY 01/27 1141 AC 01/28 PO 0800 Dextrose 25 GM ONCE ONE 01/27 1700 DC 01/27 IV 01/27 1701 1702 Enoxaparin Sodium 40 MG DAILY 01/27 1028 DC SC Fluticasone 2 SPRAY DAILY 01/27 1408 AC 01/28 Propionate IDALIA 0759 Folic Acid 1 MG DAILY 01/26 1418 AC 01/28 PO 0759 Guaifenesin 10 ML Q6P PRN 01/27 1415 AC 01/27 PO 1718 Heparin Sodium 5,000 UNIT Q8 01/26 1419 DC 01/27 (Porcine) SC 0618 Insulin Aspart 0 TIDAC 01/27 0800 AC SC Insulin Aspart 0 AT BEDTIME 01/26 2200 AC SC Insulin Detemir 3 UNITS DAILY 01/28 1000 AC 01/28 SC 0835 Insulin Detemir 3 UNITS BID 01/26 1900 DC 01/27 SC 0930 Insulin Human Regular 10 UNITS ONCE ONE 01/27 1700 DC 01/27 IV 01/27 1701 1702 Lorazepam 0 Q1P PRN 01/26 1430 AC 01/27 IV 2150 Magnesium Oxide 400 MG ONE ONE 01/28 0830 DC 01/28 PO 01/28 0831 0836 Magnesium Sulfate 1 GM ONCE ONE 01/27 0630 DC 01/27 Dextrose/Water 100 ML IV 01/27 1029 0651 Multivitamins 1 TAB DAILY 01/26 1418 AC 01/28 PO 0800 Omeprazole 40 MG DAILY AC 01/27 0700 AC 01/28 PO 0603 Ondansetron HCl 4 MG Q6P PRN 01/26 1430 AC IV Phosphate 250 MG PC AND AT BEDTIME 01/27 0900 AC 01/28 PO 0801 Potassium Chloride 40 MEQ BID 01/28 1000 AC 01/28 PO 0834 Potassium Chloride 10 MEQ Q1H 01/28 0545 DC 01/28 IV 01/28 0646 0656 Potassium Chloride 20 MEQ Q10H 01/26 1315 DC 01/27 Dextrose/Sodium 1,000 ML IV 0924 Chloride Sodium Phosphate 15 mMol ONE ONE 01/27 1700 DC 01/27 Sodium Chloride 250 ML IV 01/27 2103 1843 Sodium Polystyrene 120 ML ONCE ONE 01/27 1700 DC 01/27 Sulfonate PO 01/27 1701 1705 Thiamine HCl 100 MG DAILY 01/26 1418 AC 06/ PO 0800 Vital Signs & I&O Last 24 Hrs of Vitals and I&O: Vital Signs Date Time Temp Pulse Resp B/P B/P Pulse O2 O2 Flow FiO2 Mean Ox Delivery Rate 01/28 0700 98.2 87 25 125/74 98 Room Air 06/04 0600 98.2 80 17 127/79 06/04 0400 98.2 82 23 120/80 06/04 0400 94 Room Air 06/04 0000 97.9 94 20 115/62 06/04 0000 96 Room Air 06/03 2300 97.9 93 29 110/84 93 Room Air 06/03 2200 97.5 94 28 117/67 06/03 2000 97.6 110 20 95/67 06/03 2000 95 Room Air 06/03 1800 104 18 104/75 06/03 1700 100 12 133/80 95 Room Air Room Air 06/03 1600 98.9 102 26 116/72 06/03 1600 98.9 102 26 118/63 88 Room Air Room Air 06/03 1400 98 28 119/78 06/03 1200 99.3 92 24 130/80 06/03 1000 98 21 119/74 Intake & Output 06/04 1600 06/04 0800 06/04 0000 Intake Total 800 1810 Output Total 400 1050 Balance 400 760 Intake, IV 200 350 Intake, Oral 600 1460 Number 4 Bowel Movements Output, Urine 400 1050 Impression/Plan Impression/Plan Impression/Plan: Physical Exam General Appearance: mild distress Neck: thyromegaly Respiratory: lungs clear Cardiovascular: tachycardia Gastrointestinal: soft mild tenderness all over Extremities: no edema SIGNIFICANT DATA CT scan of the abdomen reviewed showed no significant major pathology however it did show that there is some inflammation on the pancreas IV doesn't work right away and a small groundglass opacity in the right middle lobe with hepatic steatosis and fullness in the region a head of pancreas. 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 Cultures are negative so far IMPRESSION This is a lady with history of significant alcohol use with ongoing smoking, previous left breast surgery with lumpectomy, previous ovarian abscess versus. Pelvic inflammatory disease with surgery, comes here now with significant intractable vomiting with * Resolved Severe metabolic acidosis with significant ketosis. High blood sugar noted initially. She appears to have a new onset diabetes compounded by alcohol use with ketoacidosis with profound metabolic acidosis which is improving * Probable diabetes type 1 * Significant alcohol use with clinical evidence suggestive of pancreatitis with some abnormality in the head of pancreas which needs evaluation * Ongoing smoking with a groundglass opacity in the chest needs follow up ct scan as she is an active smoker * Electrolyte abnormality with hypocalcemia improving * Sig hypokalemia RECOMMENDATION * Cont to progress her diet today if nilton * Insulin Per endo, follow sugars * Replete electrolytes, po potassium (needs about 120 meq po today) * By mouth calcium can reduce the dose * Cont librium and a very slow taper * Watch out for significant DTs * PPI po * Lovenox 40 Pt is stable can go to the floor when the potassium is repleted
--- NOTE | 2017-01-28 09:31 | PN- Diabetes ---
Assessment/Plan Assessment: Ms. Chatterjee is a 46-year-old female with past medical history significant for alcohol abuse, current smoker, left breast lump status post lumpectomy 2010, ovarian abscess status post surgery who presented to ED with chief complaint of intractable vomiting. she was newly diagnosed with DM and was admitted to ICU for DKA management. Her HbA1c was only 4.9%. KELIN 65 antibody and c-peptide are still pending. Clinically she has been feeling improving; DKA resolved. Am cortisol was 17.4. Currently she is on Levemir 3 units once a day and Novolog coverage before meals and Novolog coverage at bedtime. Her FSGs were 145, 92, 121, 89 and 80. K was 2.8 this morning. She is receiving K supplement and she complains of having burning sensation on her arm. Plan: 1. continue the current insulin regimen for now; 2. monitor FSGs; 3. consider replete K orally; 4. monitor electrolytes; 5. follow KELIN 65 antibody and C-peptide level. will follow. Subjective Subjective: She is receiving K iv supplement and complains of having burning senstion on her arm. Objective Last 24 Hrs of Vital Signs/I&O Vital Signs Date Time Temp Pulse Resp B/P B/P Pulse O2 O2 Flow FiO2 Mean Ox Delivery Rate 06/04 0700 98.2 87 25 125/74 98 Room Air 06/04 0600 98.2 80 17 127/79 06/04 0400 98.2 82 23 120/80 06/04 0400 94 Room Air 06/04 0000 97.9 94 20 115/62 06/04 0000 96 Room Air 06/03 2300 97.9 93 29 110/84 93 Room Air 06/03 2200 97.5 94 28 117/67 06/03 2000 97.6 110 20 95/67 06/03 2000 95 Room Air 06/03 1800 104 18 104/75 06/03 1700 100 12 133/80 95 Room Air Room Air 06/03 1600 98.9 102 26 116/72 06/03 1600 98.9 102 26 118/63 88 Room Air Room Air 06/03 1400 98 28 119/78 06/03 1200 99.3 92 24 130/80 06/03 1000 98 21 119/74 Intake & Output 06/04 1600 06/04 0800 06/04 0000 Intake Total 800 1810 Output Total 400 1050 Balance 400 760 Intake, IV 200 350 Intake, Oral 600 1460 Number 4 Bowel Movements Output, Urine 400 1050 Findings Pertinent Lab/Devyn Results: Laboratory Tests 01/28 01/27 01/27 0410 2130 1400 Chemistry Sodium (137 - 145 mmol/L) 138 138 Potassium (3.5 - 5.1 mmol/L) 2.8 *L 3.7 Chloride (98 - 107 mmol/L) 102 103 Carbon Dioxide (22 - 30 mmol/L) 27 24 Anion Gap (5 - 16) 10 10 BUN (7 - 17 mg/dL) 6 L 8 Creatinine (0.5 - 1.0 mg/dL) 0.5 0.5 Estimated GFR (>60 ml/min) > 60 > 60 Glucose (65 - 99 mg/dL) 85 93 C-Peptide Pending Calcium (8.4 - 10.2 mg/dL) 8.6 8.4 Phosphorus (2.5 - 4.5 mg/dL) 3.3 3.4 Magnesium (1.6 - 2.3 mg/dL) 1.6 1.8 Total Bilirubin (0.2 - 1.3 mg/dL) 0.8 0.8 AST (14 - 36 U/L) 49 H 64 H ALT (9 - 52 U/L) 88 H 105 H Albumin (3.5 - 5.0 g/dL) 3.3 L 3.8 Hematology CBC w Diff NO MAN DIFF REQ WBC (4.8 - 10.8 /CUMM) 8.8 RBC (4.20 - 5.40 /CUMM) 3.81 L Hgb (12.0 - 16.0 G/DL) 14.2 Hct (37 - 47 %) 41.4 MCV (81.0 - 99.0 FL) 108.6 H MCH (27.0 - 31.0 PG) 37.3 H RDW (11.5 - 14.5 %) 14.1 Plt Count (130 - 400 /CUMM) 76 L MPV (7.4 - 10.4 FL) 9.7 Gran % (42.2 - 75.2 %) 66.7 Lymphocytes % (20.5 - 51.1 %) 28.6 Monocytes % (1.7 - 9.3 %) 2.8 Eosinophils % (0 - 5 %) 1.6 Basophils % (0.0 - 2.0 %) 0.3 Absolute Granulocytes (1.4 - 6.5 /CUMM) 5.9 Absolute Lymphocytes (1.2 - 3.4 /CUMM) 2.5 Absolute Monocytes (0.10 - 0.60 /CUMM) 0.3 Absolute Eosinophils (0.0 - 0.7 /CUMM) 0.1 Absolute Basophils (0.0 - 0.2 /CUMM) 0 PUBS MCHC (33.0 - 37.0 G/DL) 34.4 06/03 1400 Chemistry Sodium (137 - 145 mmol/L) 131 L Potassium (3.5 - 5.1 mmol/L) 6.2 *H Chloride (98 - 107 mmol/L) 104 Carbon Dioxide (22 - 30 mmol/L) 20 L Anion Gap (5 - 16) 7 BUN (7 - 17 mg/dL) 6 L Creatinine (0.5 - 1.0 mg/dL) 0.4 L Estimated GFR (>60 ml/min) > 60 Glucose (65 - 99 mg/dL) 405 H Calcium (8.4 - 10.2 mg/dL) 7.6 L Phosphorus (2.5 - 4.5 mg/dL) 0.6 *L Magnesium (1.6 - 2.3 mg/dL) 1.9 Total Bilirubin (0.2 - 1.3 mg/dL) 0.8 AST (14 - 36 U/L) 50 H ALT (9 - 52 U/L) 98 H Albumin (3.5 - 5.0 g/dL) 3.3 L Lipase (23 - 300 U/L) 562 H
--- NOTE | 2017-01-28 20:29 | NUR ---
PT ARRIVED TO FLOOR AT 1914 FROM ICU. PT A&O X 3, DENIES PAIN, VSS. TO BS. PT REFUSES BED ALARM, EDUCATED REGARDING IMPORTANCE OF USING CALL [facility] AND VERBALIZED UNDERSTANDING. CONT TO ENCOURAGE USE. BED LOW, LOCKED, CALL [facility]MAN WITHIN REACH OFFERS NO COMPLIANTS. CONT TO MONITOR.
[2017-01-29] VITALS (10 sets, daily range): BP systolic 98–134; BP diastolic 60–80
--- NOTE | 2017-01-29 08:06 | PN- Housestaff ---
Subjective Follow-up For: Diabetic ketoacidosis-resolved Complaints: pain scale (0-10) Subjective: Patient was seen and examined this morning. She is alert awake and oriented to time, place and person. No acute events happened overnight. She was transferred from ICU to general medicine for after DKA treatment Denies any nausea, vomiting, abdominal pain. Denies any hallucinations, withdrawal tremors, chest pain, difficulty breathing Vitals remained stable Review of Systems Constitutional: Denies: chills, diaphoresis, fever. Objective Last 24 Hrs of Vital Signs/I&O Vital Signs Date Time Temp Pulse Resp B/P B/P Pulse O2 O2 Flow FiO2 Mean Ox Delivery Rate / 1849 98.3 86 20 98/64 95 06/05 1427 98.0 92 18 100/60 96 Room Air 06/ 1002 93 Room Air 06/ 0630 98.3 95 18 134/80 94 Room Air 06/05 0600 98.3 95 18 134/80 06/05 0200 98.4 75 18 116/68 06/05 0200 98.4 75 18 116/68 94 Room Air 06/05 0000 94 Room Air 06/04 2200 97.8 86 18 110/72 /04 1999 97.8 86 18 110/72 06/04 1999 97.8 86 18 110/72 96 Room Air Intake & Output /05 1600 06/05 0800 06/05 0000 Intake Total 450 100 350 Output Total 400 Balance 50 100 350 Intake, IV 0 Intake, Oral 450 100 350 Number 0 0 Bowel Movements Output, Urine 400 Physical Exam General Appearance: Alert, Oriented X3, Cooperative, No Acute Distress Skin: No Rashes, No Breakdown HEENT: Atraumatic, PERRLA, EOMI, Mucous Membr. moist/pink Neck: Supple, No JVD, No thryomegaly Lymphatic: Cervical nl Cardiovascular: Normal S1, Normal S2 Lungs: Normal Air Movement Abdomen: Normal Bowel Sounds, Soft, No Tenderness, No Hepatospenomegaly Extremities: No Clubbing, No Cyanosis, No Edema Vascular: Pulses Symmetrical Current Medications: Current Medications Sig/Abigail Start time Last Medication Dose Route Stop Time Status Admin Albuterol Sulfate 3 ML BID 01/28 2200 AC /05 INH 1001 Calcium 600 MG DAILY 01/29 1000 AC 06/05 PO 1131 Chlordiazepoxide HCl 50 MG Q12H 01/29 1800 DC PO Chlordiazepoxide HCl 25 MG Q12H 01/29 1800 AC 01/29 PO 1834 Chlordiazepoxide HCl 50 MG Q8 01/26 1419 DC 01/29 PO 0608 Cholecalciferol 1,000 IU DAILY 01/27 1141 AC 01/29 PO 1132 Enoxaparin Sodium 40 MG DAILY 01/28 1023 AC 01/29 SC 1134 Fluticasone 2 SPRAY DAILY 01/27 1408 AC 01/29 Propionate IDALIA 1134 Folic Acid 1 MG DAILY 01/26 1418 AC 01/29 PO 1131 Guaifenesin 10 ML .STK-MED ONE 01/29 0606 DC PO 01/29 0607 Guaifenesin 10 ML .STK-MED ONE 01/28 2330 DC PO 01/28 2331 Guaifenesin 10 ML Q6P PRN 01/27 1415 AC 01/29 PO 0608 Insulin Aspart 0 TIDAC 01/27 0800 AC SC Insulin Aspart 0 AT BEDTIME 01/26 2200 AC SC Insulin Detemir 3 UNITS DAILY 01/28 1000 AC 01/29 SC 1133 Loratadine 10 MG DAILY 01/29 1154 AC PO Lorazepam 0 Q1P PRN 01/26 1430 AC 06 IV 2150 Multivitamins 1 TAB DAILY 01/26 1418 AC 01/29 PO 1132 Nicotine 14 MG DAILY 01/28 1200 AC 01/29 TOP 1133 Omeprazole 40 MG DAILY AC 01/27 0700 AC 01/29 PO 0608 Ondansetron HCl 4 MG Q6P PRN 01/26 1430 AC IV Patient Medication 1 ED .STK-MED ONE 01/29 1414 NH Teaching ED 01/29 1415 Phosphate 250 MG PC AND AT BEDTIME 01/27 0900 01/29 PO 1834 Potassium Chloride 40 MEQ BID 01/28 1000 AC 01/29 PO 1131 Ramelteon 8 MG ONCE ONE 01/29 0115 DC 01/29 PO 01/29 0116 0123 Thiamine HCl 100 MG DAILY 01/26 1418 AC 01/29 PO 1132 Assessment/Plan Assessment: Ms. Chatterjee is a 46-year-old female with past medical history significant for alcohol abuse, current smoker, left breast lump status post lumpectomy 2009, ovarian abscess status post surgery who presented to ED with chief complaint of intractable vomiting. she was newly diagnosed with DM and was admitted to ICU for DKA management. 1. New onset diabetes mellitus She was admitted to ICU for treatment of diabetic ketoacidosis. Also found to have new onset diabetes mellitus. DKA resolved now. * HgA1C noted to be 4.9 * Endocrinology consult with Dr. Luis Fernando MD appreciated * continue 3 U SC levemir BID, NSS TIDAC/HS * Diet advanced to CC3, tolerating well * PO PPI * Follow up KELIN 65 antibody and C-peptide level * Continue monitoring electrolytes and replete as needed 2. Severe metabolic acidosis with ketosis * Due to a combination of diabetes and significant alcohol use * Monitor for DTs, aggressively address new onset diabetes as above * Anion gap now closed at 10, bicarb normalized 3. Significant alcohol use * Patient counseled on ETOH abuse, importance of quitting emphasized * Continue folic acid, multivitamin, vitamin D, thiamine daily * Continue CIWA scoring, IV ativan Q1P * Librium 25 q12 today, continue taper 25 one dose tmr and then stop * Watch out for DTs 4. Tobacco abuse with groundglass opacity in the lung * Tobacco cessation counseling * Nicotine patch 14 mg top Q24 * TRC nebs, robitussin as needed for cough * close follow up with pulm after discharge for nodule follow up 5. Hypocalcemia * Continue calcium carbonate 600 mg PO daily 6. Hypokalemia * Potassium 2.8 on admission * Improving * Continue 40 mEq potassium chloride twice a day FULL CODE DVTP: SC lovenox Consistent carb 3 diet Mild pain pathway Problem List: 1. DKA (diabetic ketoacidoses) Pain Ratin Pain Location: n/a Pain Goal: Remain pain free Pain Plan: jane Tomorrow's Labs & Rationales: none
--- NOTE | 2017-01-29 08:35 | PN- Diabetes ---
Assessment/Plan Assessment: Ms. Chatterjee is a 46-year-old female with past medical history significant for alcohol abuse, current smoker, left breast lump status post lumpectomy 2009, ovarian abscess status post surgery who presented to ED with chief complaint of intractable vomiting. she was newly diagnosed with DM and was admitted to ICU for DKA management. Her HbA1c was only 4.9%. KELIN 65 antibody and c-peptide are still pending. Clinically she has been feeling improving; DKA resolved. Am cortisol was 17.4. Currently she is on Levemir 3 units once a day and Novolog coverage before meals and Novolog coverage at bedtime. Her FSGs were 145, 92, 121, 89 and 80.102, 87, 113 and 92. Plan: continue the current insulin regimen; monitor FSGs; follow C-peptide and KELIN 65 antibody. will follow. Subjective Subjective: She complains of still having cough. Objective Last 24 Hrs of Vital Signs/I&O Vital Signs Date Time Temp Pulse Resp B/P B/P Pulse O2 O2 Flow FiO2 Mean Ox Delivery Rate 01/29 0630 98.3 95 18 134/80 94 Room Air 01/29 0200 98.4 75 18 116/68 94 Room Air / 2200 97.8 86 18 110/72 06/04 2000 97.8 86 18 110/72 /04 2000 97.8 86 18 110/72 96 Room Air / 1600 98.3 88 18 110/80 /04 1600 96 Nasal 2.0L Cannula 01/28 1215 Room Air Room Air 01/28 1136 94 Room Air Room Air 01/28 1000 94 20 151/99 Intake & Output 01/29 1600 01/29 0800 / 0000 Intake Total 350 Output Total Balance 350 Intake, Oral 350 Findings Pertinent Lab/Devyn Results: Laboratory Tests 01/28 1244 Chemistry Sodium (137 - 145 mmol/L) 138 Potassium (3.5 - 5.1 mmol/L) 3.6 Chloride (98 - 107 mmol/L) 103 Carbon Dioxide (22 - 30 mmol/L) 26 Anion Gap (5 - 16) 10 BUN (7 - 17 mg/dL) 7 Creatinine (0.5 - 1.0 mg/dL) 0.4 L Estimated GFR (>60 ml/min) > 60 Glucose (65 - 99 mg/dL) 101 H Calcium (8.4 - 10.2 mg/dL) 8.6 Phosphorus (2.5 - 4.5 mg/dL) 3.4 Magnesium (1.6 - 2.3 mg/dL) 1.6 Total Bilirubin (0.2 - 1.3 mg/dL) 0.8 AST (14 - 36 U/L) 58 H ALT (9 - 52 U/L) 95 H Albumin (3.5 - 5.0 g/dL) 3.6
--- NOTE | 2017-01-29 12:10 | PN- Att Addend ---
Attending Addendum Attending Brief Note Patient seen and examined, overall feeling okay. She and her thinks that she is on too much Librium. Her blood sugars are running in acceptable range. Vital Signs Date Time Temp Pulse Resp B/P B/P Pulse O2 O2 Flow FiO2 Mean Ox Delivery Rate 01/29 1002 93 Room Air 01/29 0630 98.3 95 18 134/80 94 Room Air 01/29 0200 98.4 75 18 116/68 94 Room Air 01/28 2200 97.8 86 18 110/72 01/28 2000 97.8 86 18 110/72 01/29 2000 97.8 86 18 110/72 96 Room Air 01/28 1600 98.3 88 18 110/80 01/28 1600 96 Nasal 2.0L Cannula 01/28 1215 Room Air Room Air on exam; aox, nad. cv; s1, s2, rrr resp; clear abd; soft, nt, bs+ ext; no edema. Laboratory Tests 01/28 1244 Chemistry Sodium (137 - 145 mmol/L) 138 Potassium (3.5 - 5.1 mmol/L) 3.6 Chloride (98 - 107 mmol/L) 103 Carbon Dioxide (22 - 30 mmol/L) 26 Anion Gap (5 - 16) 10 BUN (7 - 17 mg/dL) 7 Creatinine (0.5 - 1.0 mg/dL) 0.4 L Estimated GFR (>60 ml/min) > 60 Glucose (65 - 99 mg/dL) 101 H Calcium (8.4 - 10.2 mg/dL) 8.6 Phosphorus (2.5 - 4.5 mg/dL) 3.4 Magnesium (1.6 - 2.3 mg/dL) 1.6 Total Bilirubin (0.2 - 1.3 mg/dL) 0.8 AST (14 - 36 U/L) 58 H ALT (9 - 52 U/L) 95 H Albumin (3.5 - 5.0 g/dL) 3.6 A/P; 46-year-old female with past medical history significant for alcohol use who was originally admitted with a DKA as well as acute alcohol intoxication to ICU. After patient was stabilized and started on subcutaneous insulin, she has been transferred to medicine floor. Insulin management per endocrinology. Please follow-up on C-peptide and KELIN antibody. Decrease Librium to 25 twice a day for now, will continue to taper. Continue when necessary Ativan. Continue multivitamin, folate and thiamine. Patient was encouraged to take a walk today with assistance. Hypokalemia secondary on potassium supplements. DVT prophylaxis: Lovenox. Possible discharge in the next 1 or 2 days. Patient will require diabetic/insulin teaching before discharge. Discussed with patient's at bedside.
--- NOTE | 2017-01-29 12:22 | RADIOLOGY REPORT ---
EXAMINATION: XR PORTABLE CHEST CLINICAL INFORMATION: Cough, congestion, pneumonia COMPARISON: 01/26/2017 TECHNIQUE: Portable frontal view of the chest was obtained. FINDINGS: Lung volumes are symmetric. No dense consolidation is seen. The focal ground glass opacity seen in the right middle lobe on recent CT is not well delineated radiographically. No evidence of pneumothorax, pleural effusion, or pulmonary edema. The cardiomediastinal contour is unremarkable. No acute osseous findings are seen. IMPRESSION: No acute findings identified.
[2017-01-29 22:49] LABS: ABSOLUTE BASOPHIL COUNT 0 /CUMM (0.0-0.2); ABSOLUTE EOSINOPHIL COUNT 0.1 /CUMM (0.0-0.7); ABSOLUTE GRANULOCYTE CT 4.3 /CUMM (1.4-6.5); ABSOLUTE LYMPH COUNT 1.7 /CUMM (1.2-3.4); ABSOLUTE MONOCYTE COUNT 0.4 /CUMM (0.10-0.60); BASOPHIL % 0.6 % (0.0-2.0); EOSINOPHIL % 2.2 % (0-5); GRANULOCYTE % 66.1 % (42.2-75.2); MEAN CORPUSCULAR HGB 36.9 PG (27.0-31.0); MEAN CORPUSCULAR HGB CONC 33.8 G/DL (33.0-37.0); MEAN CORPUSCULAR VOLUME 109.3 FL (81.0-99.0); MEAN PLATELET VOLUME 10.4 FL (7.4-10.4); RBC DISTRIBUTION WIDTH 14.4 % (11.5-14.5); RED BLOOD CELL CT 3.47 /CUMM (4.20-5.40); WHITE BLOOD CELL COUNT 6.5 /CUMM (4.8-10.8)
[2017-01-29 22:50] LABS: PLATELET COUNT 76 /CUMM (130-400)
[2017-01-30] VITALS: BP 98/60
[2017-01-30 02:00] VITALS: BP 90/60
[2017-01-30 02:26] VITALS: BP 90/60
[2017-01-30 06:56] VITALS: BP 90/60
--- NOTE | 2017-01-30 06:58 | PN- Housestaff ---
DEJUAN CLEMENTE,AILIN 01/30/17 0658: Subjective Follow-up For: Alcoholic ketoacidosis Alcohol abuse Tobacco abuse Malnutrition Complaints: no complaints Subjective: Patient seen and examined at bedside this AM. She reports she feels well. She denies fever, chills, chest pain, shortness of breath, abdominal pain, nausea, jitteriness or withdrawl symptoms. SHe does endorse mild congestion. She has seen Dr. Luis Fernando MD this AM who suggested that the hyperglycemia and ketosis on admission was likely secondary to alcohol abuse- patient is aware of this and is amenable to attempting alcohol cessation. She is also willing to try tobacco cessation with the nicotine patch as it is working well for her here. Social work consult is pending. Review of Systems Constitutional: Denies: chills, fever, malaise. EENTM: Denies: blurred vision, visual changes, nasal congestion. Cardiovascular: Denies: chest pain, palpitations. Respiratory: Reports: cough. Denies: short of breath. Gastrointestinal: Denies: abdominal pain, bloating, constipation, diarrhea. Genitourinary: Denies: dysuria, hematuria. Musculoskeletal: Denies: back pain. Skin: Denies: lumps, rash. Neurological/Psychological: Denies: confusion, headache. Hematologic/Endocrine: Denies: bruising, bleeding. Immunologic/Allergic: Denies: splenectomy. Objective Last 24 Hrs of Vital Signs/I&O Vital Signs Date Time Temp Pulse Resp B/P B/P Pulse O2 O2 Flow FiO2 Mean Ox Delivery Rate 01/30 1051 98 Room Air Room Air 01/30 0656 98.1 94 20 90/60 93 Room Air 01/30 0226 97.6 90 20 60 99 Room Air 01/30 0200 97.6 90 20 60 01/30 0000 98.3 95 20 98/60 01/30 0000 92 Room Air 01/29 2210 98.3 95 20 98/60 92 Room Air 01/29 2200 98.3 95 20 98/60 01/29 2035 98 Room Air 06/05 2000 98.3 86 20 98/64 / 1849 98.3 86 20 98/64 95 06/05 1800 98.3 86 20 98/64 /05 1600 98.0 92 18 100/60 06/05 1427 98.0 92 18 100/60 96 Room Air Intake & Output 06/06 1600 0606 0800 06/ 0000 Intake Total 300 450 Output Total 1 Balance 300 449 Intake, Oral 300 450 Number 0 Bowel Movements Output, Stool 1 Physical Exam General Appearance: Alert, Oriented X3, Cooperative, No Acute Distress Skin: No Rashes, No Significant Lesion Skin Temp/Moisture Exam: Warm/Dry HEENT: Atraumatic, PERRLA, EOMI, Mucous Membr. moist/pink Neck: Supple, No JVD, No thryomegaly Lymphatic: Cervical nl Cardiovascular: Regular Rate, Normal S1, Normal S2, No Murmurs Lungs: Normal Air Movement Abdomen: Normal Bowel Sounds, Soft, No Tenderness Neurological: Normal Speech, Normal Tone Extremities: No Clubbing, No Cyanosis, No Edema Vascular: Pulses Symmetrical Current Medications: Current Medications Sig/Abigail Start time Last Medication Dose Route Stop Time Status Admin Albuterol Sulfate 3 ML BID 01/28 2200 AC 01/30 INH 1049 Calcium 600 MG DAILY 01/29 1000 AC 01/30 PO 1006 Chlordiazepoxide HCl 25 MG ONCE ONE 01/30 1000 DC 01/30 PO 01/30 1001 1005 Chlordiazepoxide HCl 25 MG Q12H 01/29 1800 DC 01/29 PO 01/29 2300 1834 Cholecalciferol 1,000 IU DAILY 01/27 1141 AC 01/30 PO 1005 Enoxaparin Sodium 40 MG DAILY 01/28 1023 AC 01/30 SC 1006 Fluticasone 2 SPRAY DAILY 01/27 1408 AC 01/30 Propionate IDALIA 1006 Folic Acid 1 MG DAILY 01/26 1418 AC 01/30 PO 1005 Guaifenesin 10 ML .STK-MED ONE 01/30 0108 DC PO 01/30 0109 Guaifenesin 10 ML Q6P PRN 01/27 1415 AC 01/30 PO 0108 Insulin Aspart 0 TIDAC 01/27 0800 AC SC Insulin Aspart 0 AT BEDTIME 01/26 2200 AC SC Insulin Detemir 3 UNITS DAILY 01/28 1000 DC 01/29 SC 1133 Loratadine 10 MG DAILY 01/29 1154 AC PO Lorazepam 0 Q1P PRN 01/26 1430 AC 01/27 IV 2150 Multivitamins 1 TAB DAILY 01/26 1418 AC 01/30 PO 1005 Nicotine 14 MG DAILY 01/28 1200 AC 01/30 TOP 1006 Omeprazole 40 MG DAILY AC 01/27 0700 AC 01/30 PO 0618 Ondansetron HCl 4 MG Q6P PRN 01/26 1430 AC IV Patient Medication 1 ED .STK-MED ONE 01/29 1414 GA Teaching ED 01/29 1415 Phosphate 250 MG PC AND AT BEDTIME 01/27 0900 DC 01/29 PO 1834 Potassium Chloride 40 MEQ BID 01/28 1000 DC 01/29 PO 1131 Thiamine HCl 100 MG DAILY 01/26 1418 AC 01/30 PO 1005 Last 24 Hrs of Lab/Devyn Results Last 24 Hrs of Labs/Mics: Laboratory Tests 01/29/17 2212: Anion Gap 12, Estimated GFR > 60, Glucose 109 H, Calcium 9.7, Phosphorus 6.0 H , Magnesium 1.6, Total Bilirubin 0.4, AST 95 H, ALT 138 H, Albumin 3.8, CBC w Diff NO MAN DIFF REQ, RBC 3.47 L, MCV 109.3 H, MCH 36.9 H, RDW 14.4, MPV 10.4 , Gran % 66.1, Lymphocytes % 25.6, Monocytes % 5.5, Eosinophils % 2.2, Basophils % 0.6, Absolute Granulocytes 4.3, Absolute Lymphocytes 1.7, Absolute Monocytes 0.4, Absolute Eosinophils 0.1, Absolute Basophils 0, PUBS MCHC 33.8 Assessment/Plan Assessment: Ms. Chatterjee is a pleasant 46-year-old female with past medical history significant for alcohol abuse, current smoker, left breast lump status post lumpectomy 2009 and ovarian abscess status post surgery who presented to the ED with chief complaint of intractable vomiting. She was initially admitted to the ICU for presumed DKA and has been transferred to the medical floor for the following issues: 1. Ketoacidosis * Patient was initially admitted to the ICU at which time she was believe to be in diabetic ketoacidosis with + acetone on UA and blood glucose levels 325 and anion gap of 43 * KELIN antibody and returned low to <5; C-Peptide level high to 4.28 which argues against diabetic ketoacidosis * HgA1C noted to be 4.9 * Endocrinology consult with Dr. Luis Fernando MD appreciated * Above lab values suggest patient actually had alcoholic ketoacidosis * Insulin has been discontinued today per endocrinology recommendations * Patient will be discharged with glucometer and will check FSG once a day; she was told ot keep a log and bring this to follow up with Dr. Luis Fernando MD in 1-2 months * Continue diabetic diet with CC3 * Social work consult for alcohol cessation; importance of quitting emphasized to patient and she is willing to try 2. Severe metabolic acidosis with ketosis * Due to significant alcohol use as noted above * Monitor for DTs * Anion gap now closed at 12, bicarb normalized * As noted above, continue to encourage abstinence from alcohol 3. Significant alcohol use * Patient counseled on ETOH abuse, importance of quitting emphasized * Continue folic acid, multivitamin, vitamin D, thiamine daily; will discharge her home on these medications * Continue CIWA scoring, IV ativan Q1P * Librium 25 once daily today and then stop; patiet has no signs of withdrawl and feels ewll * Outpatient alcohol counseling 4. Tobacco abuse with groundglass opacity in the lung * Tobacco cessation counseling * Nicotine patch 14 mg top Q24 * TRC nebs, robitussin as needed for cough * Close follow up with Dr. Fercho MA after discharge for nodule follow up ( referral placed) 5. Hypocalcemia * Continue calcium carbonate 600 mg PO daily and supplement after discharge 6. Hypokalemia * Potassium 2.8 on admission * Improved * Recheck BEP one week after discharge and send results to Dr. Marvin MD FULL CODE DVTP: SC lovenox Consistent carb 3 diet Mild pain pathway Problem List: 1. Alcoholic ketoacidosis 2. Alcohol abuse 3. Tobacco abuse Pain Ratin Pain Location: n/a Pain Goal: Remain pain free Pain Plan: per pain pathway Tomorrow's Labs & Rationales: Discharge today. GIBRAN CLEMENTE,[facility] 01/30/17 1228: Attending MD Review Statement Attending Statement Attending MD Statement: examined this patient, discuss w/resident/PA/TOWNSHIP CLERK, agreed w/resident/PA/TOWNSHIP CLERK, discussed with family, reviewed EMR data (avail), discussed with nursing, discussed with case mgmt, reviewed images, amended to note Attending Assessment/Plan: Patient seen and examined, overall feeling much better. Denies any complaints. Seen by endocrine this morning and they recommended stopping insulin. Patient likely does not have a history of diabetes it was probably alcohol induced pancreatitis leading to hyperglycemia. At this point. Her insulin. Patient will be given prescription for glucometer to check her blood sugars on regular basis. Patient will see Dr. Gould as an outpatient. She has received one last dose of Librium today. She will be discharged home on vitamin, folate and thiamine. Patient will also need an outpatient appointment with the primary care doctor which we will refer her to Dr. Oseguera. Medically stable for DC home today.
--- NOTE | 2017-01-30 09:44 | PN- Diabetes ---
Assessment/Plan Assessment: Ms. Chatterjee is a 46-year-old female with past medical history significant for alcohol abuse, current smoker, left breast lump status post lumpectomy 2009, ovarian abscess status post surgery who presented to ED with chief complaint of intractable vomiting. she was newly diagnosed with DM with glucose level of 325 and was admitted to ICU for DKA management. Clinically she has been feeling improving; DKA resolved. Am cortisol was 17.4. Currently she is on Levemir 3 units once a day and Novolog coverage before meals and Novolog coverage at bedtime. Her FSGs were 83, 183, 84 and 95. C-peptide level was 4.29 and KELIN 65 antibody was < 5. Her HbA1c was only 4.9%. As patient's c-peptide level is elevated, KELIN 65 antibody is negative and HbA1c is in the normal range, most likely patient has alcoholic ketoacidosis, not diabetic ketoacidosis. However, it is unuasual to have glucose level of more than 300 on admission for patients who have alcoholic ketoacidosis. But patient did have elevated lipase suggestive of pancreatitis. Plan: 1. stop insulin; 2. diabetic diet control; 3. monitor FSGs; 4. ETOH cessation. The plan has been discussed with team and patient. Subjective Subjective: She has no special complaints this morning. Objective Last 24 Hrs of Vital Signs/I&O Vital Signs Date Time Temp Pulse Resp B/P B/P Pulse O2 O2 Flow FiO2 Mean Ox Delivery Rate 01/30 0656 98.1 94 20 90/60 93 Room Air 06/06 0226 97.6 90 20 90/60 99 Room Air /06 0200 97.6 90 20 90/60 /06 0000 98.3 95 20 98/60 06/06 0000 92 Room Air 06/05 2210 98.3 95 20 98/60 92 Room Air 06/05 2200 98.3 95 20 98/60 06/05 2035 98 Room Air 06/05 2000 98.3 86 20 98/64 06/05 1849 98.3 86 20 98/64 95 06/05 1800 98.3 86 20 98/64 06/05 1600 98.0 92 18 100/60 06/05 1427 98.0 92 18 100/60 96 Room Air 06/05 1002 93 Room Air Intake & Output 01/30 1600 /06 0800 /06 0000 Intake Total 300 450 Output Total 1 Balance 300 449 Intake, Oral 300 450 Number 0 Bowel Movements Output, Stool 1 Findings Pertinent Lab/Devyn Results: Laboratory Tests 01/30 2212 Chemistry Sodium (137 - 145 mmol/L) 135 L Potassium (3.5 - 5.1 mmol/L) 4.1 Chloride (98 - 107 mmol/L) 97 L Carbon Dioxide (22 - 30 mmol/L) 26 Anion Gap (5 - 16) 12 BUN (7 - 17 mg/dL) 15 Creatinine (0.5 - 1.0 mg/dL) 0.6 Estimated GFR (>60 ml/min) > 60 Glucose (65 - 99 mg/dL) 109 H Calcium (8.4 - 10.2 mg/dL) 9.7 Phosphorus (2.5 - 4.5 mg/dL) 6.0 H Magnesium (1.6 - 2.3 mg/dL) 1.6 Total Bilirubin (0.2 - 1.3 mg/dL) 0.4 AST (14 - 36 U/L) 95 H ALT (9 - 52 U/L) 138 H Albumin (3.5 - 5.0 g/dL) 3.8 Hematology CBC w Diff NO MAN DIFF REQ WBC (4.8 - 10.8 /CUMM) 6.5 RBC (4.20 - 5.40 /CUMM) 3.47 L Hgb (12.0 - 16.0 G/DL) 12.8 Hct (37 - 47 %) 38.0 MCV (81.0 - 99.0 FL) 109.3 H MCH (27.0 - 31.0 PG) 36.9 H RDW (11.5 - 14.5 %) 14.4 Plt Count (130 - 400 /CUMM) 76 L MPV (7.4 - 10.4 FL) 10.4 Gran % (42.2 - 75.2 %) 66.1 Lymphocytes % (20.5 - 51.1 %) 25.6 Monocytes % (1.7 - 9.3 %) 5.5 Eosinophils % (0 - 5 %) 2.2 Basophils % (0.0 - 2.0 %) 0.6 Absolute Granulocytes (1.4 - 6.5 /CUMM) 4.3 Absolute Lymphocytes (1.2 - 3.4 /CUMM) 1.7 Absolute Monocytes (0.10 - 0.60 /CUMM) 0.4 Absolute Eosinophils (0.0 - 0.7 /CUMM) 0.1 Absolute Basophils (0.0 - 0.2 /CUMM) 0 PUBS MCHC (33.0 - 37.0 G/DL) 33.8
[2017-01-30] MEDS ORDERED: VITAMIN B-1100 MG PO (11:47)
[2017-01-30] MEDS ORDERED: CALCIUM CARBON500 M2 PO (11:47)
[2017-01-30] MEDS ORDERED: FOLIC ACID1 M1 PO (11:47)
[2017-01-30] MEDS ORDERED: VITAMIN D31000 UNI2 PO (11:47)
[2017-01-30] MEDS ORDERED: DAILY VALUE1 EACH PO (11:47)
[2017-01-30] MEDS ORDERED: ZYRTEC10 M3 PO (11:48)
--- NOTE | 2017-01-30 11:52 | Patient Discharge Instructions ---
See Addendum Discharge Instructions General Discharge Information You were seen/treated for: Alcoholic ketoacidosis Tobacco abuse Alcohol abuse Special Instructions: Please follow up with PCP within 7 days of discharge. Please follow up with Dr. Gould in 1-2 months. Please keep a log of once a day fingerstick glucose checks. We have provided you with a prescription for a glucometer, test strips and lancets. Please greens picker your prescriptions at [facility] in [place]. Please continue to not use alcohol or tobacco. Diet Recommended Diet: Heart Healthy Activity Activity Self Limited: Yes Acute Coronary Syndrome Inclusion Criteria At DC or during hospital stay patient has or had the following: ACS DIAGNOSIS No Discharge Core Measures Meds if any: Prescribed or Continued at Discharge Meds if any: NOT Prescribed or Continued at Discharge Congestive Heart Failure Inclusion Criteria At DC or during hospital stay patient has or had the following: CHF DIAGNOSIS No Discharge Core Measures Meds if any: Prescribed or Continued at Discharge Meds if any: NOT Prescribed or Continued at Discharge Cerebrovascular accident Inclusion Criteria At DC or during hospital stay patient has or had the following: CVA/TIA Diagnosis No Discharge Core Measures Meds if any: Prescribed or Continued at Discharge Meds if any: NOT Prescribed or Continued at Discharge Venous thromboembolism Inclusion Criteria VTE Diagnosis No VTE Type NONE VTE Confirmed by (Test) NONE Discharge Core Measures - Per Current guidelines, there needs to be overlap - treatment for the first 5 days of Warfarin therapy. - If discharged on Warfarin prior to 5 days of - overlap therapy, the patient will need to be - assessed for post discharge needs including - *Post discharge parental anticoagulation - *Warfarin and/or parental anticoagulation education - *Follow up date to check INR post discharge At least 5 days overlap therapy as Inpatient No Meds if any: Prescribed or Continued at Discharge Note: Overlap Therapy is Warfarin and Anticoagulant Meds if any: NOT Prescribed or Continued at Discharge
--- NOTE | 2017-01-30 13:47 | NUR ---
Late Entry: Aware of patients discharge home earlier this afternoon. This patient is a 46 year old woman, admitted to the hospital on 01/26/17 with diabetic ketoacidosis. Further workup revealed that this was alcoholic ketoacidosis; patient discloses daily whiskey. Receptive to counselling about alcohol cessation; reports anxiety about going to AA with friends; thinks she would be able to "cut down" to just weeekend ETOH intake. Utilizing nicotine patches here and reports good success with same. Not ready to try formal treatment yet, but has considered it. Aware of our IOP. Patient provided with emotional support; quite tearful when disclosing history. also drinks whiskey and he reports willingness to cut back to do this as a "Team". Patient given my card for contact info should she decide she would need formal treatment.
--- NOTE | 2017-01-30 16:19 | Discharge Summary ---
Visit Information Visit Dates Admission Date: 01/26/17 Discharge Date: 01/30/17 Hospital Course Course Attending Physician: KATIE CLEMENTE,DANAE Zeng Primary Care Physician: UNKNOWN Consulting Request: Consulting Specialty: Endocrinology Consulting Physician: Dr. Raf MD Reason for Consult: Ketoacidosis Hospital Course: Ms. Chatterjee is a pleasant 46-year-old female with past medical history significant for alcohol abuse, current smoker, left breast lump status post lumpectomy 2009 and ovarian abscess status post surgery who presented to the ED with chief complaint of intractable vomiting. In the ED: Vital signs showed T 97.2, HR 132, RR 16, BP 116/91 and O2 saturation 97% on room air. Physical exam showed: General Appearance: Alert, Oriented X3, Cooperative, No Acute Distress Skin: No Rashes, No Breakdown, No Significant Lesion Skin Temp/Moisture Exam: Warm/Dry HEENT: Atraumatic, PERRLA, EOMI, Mucous Membr. moist/pink Neck: Supple, No JVD Cardiovascular: Regular Rate, Normal S1, Normal S2, No Murmurs Lungs: Clear to Auscultation, Normal Air Movement Abdomen: Normal Bowel Sounds, Soft, No Tenderness Neurological: Normal Gait, Normal Speech, Strength at 5/5 X4 Ext, Normal Tone, Sensation Intact, Cranial Nerves 3-12 NL, Reflexes 2+ Extremities: No Clubbing, No Cyanosis, No Edema, Normal Pulses Labs were significant for: H&H 17.7/52.7, WBC 19 with 2 bands, platelets 173, sodium 143, potassium 4.6, bicarbonate 7, BUN/creatinine 27/1.3, glucose 325, anion gap 43, ABG 7.36/22/88/12, AST 131, ALT 185, alkaline phosphatase 99, lipase 588, amylase 147, troponin less than 0.01. Urine tox positive for cannabis. CT abdomen/pelvis showed hepatic steatosis, fullness in the region of the head of the pancrease, right ovarian cyst and degenerative disease at L2-L3. Patient was initially admitted to the ICU but was transferred to the general medicine floor for the completion of her admission. Below was the management: 1. Ketoacidosis: Upon admission to the ICU, Anabella was placed on an insulin drip due to concerns of diabetic ketoacidosis. She was made NPO and electrolytes were monitored closely. Endocrinology consult was placed with Dr. Raf MD. HgA1C noted to be low to 4.9%. KELIN 65 antibody and C-Peptid were ordered. Insulin drip was turned off once FSGs <200 and patient was noted to be subsequently hypoglycemic requiring D50. SHe was started on levemir 3 U SC daily and a sliding scale with meals. Glucose levels persistently well controlled. KELIN antibody <5 and C-Peptide high to 4.29. This supported alcoholic ketoacidosis more than diabetic ketoacidosis. Endocrinology suggested stopping all insulin, continuing diabetic diet and discharge with daily FSG monitoring. Anabella is to keep a log of these glucose levels and bring the list with her to her follow up appointment at Dr. Gould's office in 1-2 months. 2. Alcohol abuse: Patient has significant ETOH history, drinking 1 pint of alcohol daily. This contributed to both alcoholic ketoacidosis and withdrawl symptoms. Patient was started on CIWA scoring and given ativan as needed for agitation. She also completed a librium taper. Social work consult was placed and patient was provided with alcohol cessation information and community outreach programs. 3. Transaminitis: Likely secondary ot alcohol use. PCP should monitor ETOH use as well as LFTs periodically. 4. JENAE: Likely secondary to dehydration in the setting of decreased PO intake due to nausea and abdominal pain. Patient was hydrated with IV fluids and renal function returned to baseline. 5. Hypocalcemia: On admission, calcium 8.9 and albumin 5.9 but repeat calcium low to 6.8. Magnesium and vitamin D were checked. Vitamin D was low, magnesium was within normal limits. Calcium 500 mg PO BID was started. She was also discharged on vitamin D, multivitamin, folic acid and thiamine. 6. Tobacco abuse: Patient was started on a nicotine patch daily. She was given tobacco cessation counseling and she was referred to tobacco cessation programs in the community through social work. She reported she would try using the nicotine patch as an outpatient. Of note, she will be following up with Dr. Katie MD for groundglass nodule noted on chest x-ray. 7. Code: FULL 8. Diet: CC3 9. DVT Prophylaxis: SC Lovenox Allergies: Coded Allergies: No Known Allergies (01/26/17) Significant Procedures: Abdominal/Pelvis CT: IMPRESSION: 1. Small focal area of subpleural ground-glass opacity in the right middle lobe which is nonspecific but may be inflammatory. 2. Hepatic steatosis. 3. Fullness in the region of the head of the pancreas. Evaluation is limited due to the lack of intravenous contrast. 4. Right ovarian cyst measuring 2.3 cm. 5. Severe degenerative disc disease at L2-L3. CXR 01/26/17: IMPRESSION: No evidence of an acute intrathoracic process. Given the 2.5 cm transverse dimension focus of right middle lobe groundglass opacity identified on recent abdominal CT, interval follow-up CT imaging will be necessary. A dedicated chest CT on a nonemergent basis should also be considered to evaluate for other areas of groundglass opacity. Please see discussion below in regards to the updated Fleischner recommendations: The Fleischner Society recommendations are related to the follow-up and management of pulmonary nodules detected incidentally in patient's greater than 35 years old on non-screening CT. Ground Glass Nodule: Average size < 6 mm: No routine follow-up. Average size 6 mm or greater: CT at 6-12 months to confirm persistence. Then CT every 2 years until 5 years. In certain suspicious nodules < 6 mm, consider follow-up at 2 years and 4 years. If solid component(s) or growth develops, consider resection. CXR 01/29/17: FINDINGS: Lung volumes are symmetric. No dense consolidation is seen. The focal ground glass opacity seen in the right middle lobe on recent CT is not well delineated radiographically. No evidence of pneumothorax, pleural effusion, or pulmonary edema. The cardiomediastinal contour is unremarkable. No acute osseous findings are seen. IMPRESSION: No acute findings identified. Disposition Summary Disposition Principal Diagnosis: Alcoholic ketoacidosis Additional Diagnosis: Tobacco abuse Alcohol abuse Malnutrition Discharge Disposition: home health services Discharge Instructions General Discharge Information Code Status: Full Code Patient's Diet: Diabetic diet. Patient's Activity: Self limited, as tolerated. Follow-Up Instructions/Appts: Please follow up with PCP within 7 days of discharge. Please follow up with Dr. Gould in 1-2 months. Please keep a log of once a day fingerstick glucose checks. We have provided you with a prescription for a glucometer, test strips and lancets. Please pick pulling machine tender your prescriptions at [facility] in [place]. Please continue to not use alcohol or tobacco. Please have BEP drawn at a laboratory on 02/06/17. Please follow up with Dr. Katie MD within 2 weeks for groundglass opacities/ nodules seen on chest Xray. Medications at Discharge Discharge Medications: Start taking the following new medications: Calcium Carbonate (Calcium Carbonate) 500 MG CALCIUM (1,250 MG) TABLET 600 Milligram ORAL DAILY Qty = 30 No Refills Comments: Last Taken: 01/30/17 Time: 10am Folic Acid (Folic Acid) 1 MG TABLET 1 Milligram ORAL DAILY Qty = 30 No Refills Comments: Last Taken: 01/30/17 Time: 10am Thiamine HCl (Vitamin B-1) 100 MG TABLET 100 Milligram ORAL DAILY Qty = 30 No Refills Comments: Last Taken: 01/30/17 Time: 10am Cholecalciferol (Vitamin D3) 1,000 UNIT TABLET 1,000 International Unit ORAL DAILY Qty = 30 No Refills Comments: Last Taken: 01/30/17 Time: 10am Multivitamin (Daily Value) 1 EACH TABLET 1 Tablet ORAL DAILY Qty = 30 No Refills Comments: Last Taken: 01/30/17 Time: 10am Cetirizine HCl (Zyrtec) 10 MG TABLET 1 Tablet ORAL DAILY Qty = 30 No Refills Comments: not given while in hospital Copies To: KATIE CLEMENTE,DANAE Zeng; RAF CLEMENTE,JEY Attending MD Review Statement Documenting Attending: GIBRAN CLEMENTE,KARINE
== END 2017-01-30 13:30 | disposition home health service (06) | DRG 641 ==
LOC: ERH 08:45 → 2NA 13:03 → CRI 13:03 → ERHI 13:03 → ENRESERV 13:45 → ENTRNSPT 14:30 → CRI 14:51 → 2NA 01-28 19:15 → ENPENDDIS 01-30 12:55 → 2NA 01-30 13:30
PROVIDERS: Dermatology; Emergency Medicine; Student in an Organized Health Care Education/Training Program; ADMIT Internal Medicine Pulmonary Disease
DX: E87.2 Acidosis (principal); N17.9 Acute kidney failure, unspecified; E46 Unspecified protein-calorie malnutrition; E83.51 Hypocalcemia; K86.0 Alcohol-induced chronic pancreatitis; Z68.1 Body mass index [BMI] 19.9 or less, adult; F10.239 Alcohol dependence with withdrawal, unspecified; N83.291 Other ovarian cyst, right side; F12.90 Cannabis use, unspecified, uncomplicated; E87.6 Hypokalemia; M51.36 Other intervertebral disc degeneration, lumbar region; F17.210 Nicotine dependence, cigarettes, uncomplicated
CPT/HCPCS: 2NAP; 83519; CCU; 36415; 74176; 80307; 81001; 82436; 87086; 93005; 93010; G0480; J1644; J1650; J1815; J1885; J2405; J2550; J3490; J7040; J7042; J7060